=== PATIENT | female | born 1965 | race Caucasian/White ===

== ENCOUNTER → 2021-02-04 02:31 | Outpatient (CLI) | payer BC, SELFPAY ==
[2021-02-04 16:47] LABS: SARS-CoV-2 RNA PCR Negative
== END ==
PROVIDERS: PCP Nurse Practitioner Obstetrics & Gynecology; Visit Provider Internal Medicine Gastroenterology
DX: Z01.812 Encounter for preprocedural laboratory examination (principal); Z20.822 Contact with and (suspected) exposure to COVID-19
CPT/HCPCS: C9803; U0003; U0005

== ENCOUNTER 2021-02-07 01:01 | Day surgery (SDC) | payer BC, SELFPAY ==
[2021-01-24 13:25] VITALS: BMI 29.2
--- NOTE | 2021-02-06 18:30 | PM.HPGS ---
History of Present Illness History of Present Illness Consent: Risks, benefits, and alternatives have been discussed and questions answered. Patient agrees to proceed with procedure. Chief complaint: neoplasm screening Narrative: Kaci Ferguson is a 55 year old female referred for colon cancer screening Review of Systems Review of Systems: All systems reviewed & are unremarkable except as noted in HPI and below PMFSH Past Medical History Medical History Obesity Family History Family History Father Diabetes mellitus, Onset Age: 69 Other Family history of malignant neoplasm of breast Social History Social History Smoking status: Former smoker Alcohol intake: current Drinks per week: 6 Substance use: never Substance use type: does not use Living arrangements: with family Spiritual care concerns: No Meds Home Medications and Allergies Home Medications Medication Instructions Recorded Confirmed Type estradiol 1 mg PO DAILY 01/24/21 02/07/21 History progesterone micronized 100 mg PO BID 01/24/21 02/07/21 History Allergies Allergy/AdvReac Type Severity Reaction Status Date / Time No Known Allergies Allergy Verified 02/07/21 09:05 Exam Resp: Auscultation: clear to auscultation bilaterally Cardio: Rate: regular rate Rhythm: regular rhythm GI: GI Palp: Yes Soft to palpation and No Tenderness to palpation present (GI) Assessment and Plan Assessment and plan (1) Colon cancer screening: Code(s): Z12.11 - Encounter for screening for malignant neoplasm of colon Status: Acute Assessment and Plan: Colonoscopy with possible biopsy or polypectomy or cautery or injection of substances.
[2021-02-07 09:05] VITALS: BP 123/65; PULSE 82; RESP 16; TEMP 36.6; O2SAT 98; BMI 30.3
[2021-02-07] MEDS: LACTATED RINGERS 1,000 ML 150 ML IV CONT (09:22)
--- NOTE | 2021-02-07 09:57 | WPDANESEPPF ---
Anes - Initial Pre Proc Eval Procedure: Operation Date: 02/07/21 10:30 Proposed Procedures p Screening Colonoscopy - Johnnie Hernandez MD Date/Time: 02/07/21 09:57 Surgeon: Johnnie Hernandez MD Pre Op Diagnosis: neoplasm screening Patient Data Age: 55 Gender: F Height: 1.6 m Weight: 77.7 kg Last Vital Signs Temp 98 F 02/07/21 09:05 Pulse 82 02/07/21 09:05 Resp 16 02/07/21 09:05 BP 123/65 02/07/21 09:05 Pulse Ox 98 02/07/21 09:05 Allergies Allergy/AdvReac Type Severity Reaction Status Date / Time No Known Allergies Allergy Verified 02/07/21 09:05 Home Medications Medication Instructions Recorded Confirmed Type estradiol 1 mg PO DAILY 01/24/21 02/07/21 History progesterone micronized 100 mg PO BID 01/24/21 02/07/21 History Patient hx anesthesia problems: none Family hx anesthesia problems: none Results Review: All pre-operative results and documents have been reviewed as part of the pre-operative evaluation. [facility] Past Medical History Medical History (Updated 02/07/21 @ 09:53 by Josep Moyer MD) Obesity Family History Family History (Updated 05/13/16 @ 10:05 by DOCTOR UNKNOWN) Father Diabetes mellitus, Onset Age: 69 Other Family history of malignant neoplasm of breast Social History Social History Smoking status: Former smoker Alcohol intake: current Drinks per week: 6 Substance use: never Substance use type: does not use Living arrangements: with family Spiritual care concerns: No Anes - Eval Final PreProcedure Day of Procedure 02/07/21 09:57 Patient weight: obese Heart: regular rate and rhythm Lungs: clear to auscultation Airway: Mallampati scale Neurological: alert and oriented Last oral intake: >/= 8 hours ASA classification: II Emergent: no Anesthetic plan: proceed Anesthesia type and monitoring: general GIVS and standard monitoring Results Review: All pre-operative results and documents have been reviewed as part of the pre-operative evaluation. Informed Consent: The patient's anesthetic plan and its attendant risks and benefits were discussed with the patient/family/POA. Questions were solicited and answers provided to the satisfaction of the patient/family/POA.
[2021-02-07 10:32] VITALS: BP 89/54; PULSE 71; RESP 16; O2SAT 100
[2021-02-07 10:42] VITALS: BP 102/56; PULSE 68; RESP 18; O2SAT 100
[2021-02-07 10:52] VITALS: BP 127/65; PULSE 66; RESP 23; O2SAT 100
== END 2021-02-07 11:05 | disposition home or self-care (01) ==
PROVIDERS: PCP Nurse Practitioner Obstetrics & Gynecology; Visit Provider Internal Medicine Gastroenterology
PROC: 0DJD8ZZ Inspection of Lower Intestinal Tract, Via Natural or Artificial Opening Endoscopic (ICD-10-PCS; CPT 45378; principal; 2021-02-07 10:30)
DX: Z12.11 Encounter for screening for malignant neoplasm of colon (principal); D12.3 Benign neoplasm of transverse colon; K57.30 Diverticulosis of large intestine without perforation or abscess without bleeding; K64.8 Other hemorrhoids; E66.9 Obesity, unspecified; Z68.30 Body mass index [BMI] 30.0-30.9, adult; Z87.891 Personal history of nicotine dependence
CPT/HCPCS: 45385; 88305; C9803; J2704; J7120; U0003; U0005

== ENCOUNTER 2022-06-09 15:28 | Emergency (ER) | payer BC, SELFPAY ==
--- NOTE | ~2022-06-09 | XR_ITS ---
EXAMINATION: XR knee RT 3V DATE: 06/09/2022 16:23 INDICATION: Right knee pain radiating posteriorly into the hip and ankle TECHNIQUE: Anteroposterior, 2 oblique and crosstable lateral views of the right knee were obtained COMPARISON: None. FINDINGS: Alignment is normal. No fracture. Joint spaces appear normal. There are however subarticular cystic c hange at the patella suggesting overlying high-grade chondromalacia. No joint effusion/layering lipoh emarthrosis. Soft tissues are unremarkable. IMPRESSION: 1. Likely degenerative subarticular cystic change at the patella. No right knee joint effusion or acu te osseous abnormality. Reviewed, dictated and finalized at location A. A [employer] MEMBER IMPRESSION: 1. Likely degenerative subarticular cystic change at the patella. No right knee joint effusion or acute osseous abnormality.
[2022-06-09 15:47] VITALS: BP 135/78; PULSE 77; RESP 17; TEMP 36.6; O2SAT 99
--- NOTE | 2022-06-09 16:52 | ED.LOWEXIN ---
HPI - Extremity Injury (Lower) General Chief Complaint: Extremity Injury, Lower Stated Complaint: right knee pain Time Seen by Provider: 06/09/22 16:23 Source: patient Mode of arrival: wheelchair Limitations: no limitations History of Present Illness HPI Narrative: This is a 56-year-old female that presents to the emergency department for right knee pain ongoing since this morning. Reports she went to go up the steps and felt a pop in her right knee. Said she has had pain in her knee and that is made it unable for her to bear weight on the leg. She additionally reports right-sided low back pain radiating down her leg. There was no fall or certain injury. Denies decreased range of motion or numbness. Related Data Home Medications Medication Instructions Recorded Confirmed estradiol 1 mg tablet 1 mg PO DAILY 01/24/21 02/07/21 progesterone micronized 100 mg 100 mg PO BID 01/24/21 02/07/21 capsule Allergies Allergy/AdvReac Type Severity Reaction Status Date / Time No Known Allergies Allergy Verified 06/09/22 16:15 Review of Systems Review of Systems: CONSTITUTIONAL: Denies fever MUSCULOSKELETAL: Reports back pain, joint pain, and myalgia. NEUROLOGIC: Denies numbness, or weakness. All systems reviewed & are unremarkable except as noted in HPI and below PMFSH Past Medical History Medical History Obesity Family History Family History Father Diabetes mellitus, Onset Age: 69 Other Family history of malignant neoplasm of breast Social History Social History Smoking status: Former smoker Alcohol intake: current Drinks per week: 6 Substance use: never Substance use type: does not use Living arrangements: with family Spiritual care concerns: No Exam Narrative: GENERAL: Well-appearing, well-nourished, and in no acute distress. HEAD: Normocephalic, atraumatic. EYES: EOMI. CHEST: No respiratory distress. HEART: Regular rate BACK: No midline spinal tenderness EXTREMITIES: Normal range of motion. No edema or obvious deformity. Normal DP pulse. Normal sensation SKIN: Warm, dry, no rash. NEURO: No focal deficits. Alert and oriented x3. PSYCH: Normal mood and affect Course Vital Signs Vital signs: Vital Signs Temperature 98 F 06/09/22 15:47 Pulse Rate 77 06/09/22 15:47 Respiratory Rate 17 06/09/22 15:47 Blood Pressure 135/78 06/09/22 15:47 Pulse Oximetry 99 06/09/22 15:47 Temperature 98 F 06/09/22 15:47 Pulse Rate 77 06/09/22 15:47 Respiratory Rate 17 06/09/22 15:47 Blood Pressure 135/78 06/09/22 15:47 Pulse Oximetry 99 06/09/22 15:47 MDM - Extremity Injury (Lower) MDM Narrative Medical decision making narrative: Patient presents to the emergency department for right knee pain after walking up the steps today. Reports she felt a pop in the knee and has had pain since. Reports she has not been able to bear weight on the leg due to pain. Patient is neurovascularly intact. Right knee x-rays without acute osseous abnormalities or joint effusion. Does show degenerative changes at the patella. She was additionally reporting some low back pain on the right side that was radiating down her right leg consistent with sciatica. Offered for x-rays of her back as well. She does not wish to have these done at this time. She was updated on workup. Instructed on continued care of knee sprain. Will be placed in Javon wrap and reports she will be able to get a walker for home. She does not want to attempt crutches. She is to follow-up with orthopedics. She was given warnings to return to the ER Differential Diagnosis Differential diagnosis: Likely acute internal derangement of knee and other (muscle strain, sciatica) Imaging Data Radiologist's impression: ITS Impressions Knee X-Ray
[2022-06-09] MEDS: HYDROcodone/acetaminophen (*CRX) 5-325 MG TABLET 1 TAB PO (17:19)
[2022-06-09 17:28] VITALS: BP 124/55; PULSE 69; RESP 16; O2SAT 98
== END 2022-06-09 17:30 | disposition home or self-care (01) ==
PROVIDERS: Emergency Provider Physician Assistant
DX: S83.91XA Sprain of unspecified site of right knee, initial encounter (principal); M54.41 Lumbago with sciatica, right side; E66.9 Obesity, unspecified; Z68.33 Body mass index [BMI] 33.0-33.9, adult; Z87.891 Personal history of nicotine dependence; X50.9XXA Other and unspecified overexertion or strenuous movements or postures, initial encounter
CPT/HCPCS: 73562; 99283; A9270

== ENCOUNTER 2024-10-05 08:02 | Outpatient (CLI) | payer BC, SELFPAY ==
--- OUTSIDE RECORDS SUMMARY | 2024-10-05 08:07 | XMS_ITS | Data Portability ---
Author Organization [facility], Main Office Address [address] [place] [address] Assessment No assessment recorded. Plan of Treatment Reminders Order Date Submit Date Provider Last Modified By Organization Details Last Modified Time Details Appointments None record ed. Lab None record ed. Referral None record ed. Procedures None record ed. Surgeries None record ed. Imaging None record ed. Medication Orders None record ed. Patient TargetsNo targets recorded. Patient InstructionsNo instructions recorded. Reason for Referral None Reported. Results Created Date Observation Date Name Description Value Unit Range Abnormal Flag Note LastModifiedBy Organization Detail LastModifiedTime 09/21/19 22 09/24/2021 DELFINA/A NTINU CLEAR ANTIB ODIES ,IFA antinuclear antibodies, ifa negati ve Negat ganga <1:80 Borde rline 1:80 Posit ganga >1:80 ICAP nomen will re: AC-0 For more infor chelle cueva about Hep-2 cell patte rns use ANApa ttern s.org , the offic ial websi te for the Inter natio nal Conse nsus on Antin uclea r Antib carmen (DELFINA) Patte rns ([facility] ). Perfo [place]med at: [place] [address] Lab Direc tor: Yosi garcia PhD, Phone : [phone] Not Available [facility] (Lab) [address] [place], [address], 09/24/2021 15:11:20 09/21/19 22 09/20/2021 FOLAT E, SERUM /PLAS MA folate 4.32 NG/mL 2.76-2 0.0 Not Available [facility] (Lab) [address] [place], [address], 09/20/2021 20:27:53 09/21/19 22 09/20/2021 VITAM IN B12 (GERTRUDIS LIN ) vb12 565 pg/mL 239-93 1 Not Available [facility] (Lab) [address] [place], [address], 09/20/2021 20:27:52 09/21/19 22 09/20/2021 TSH thyroid-stim ulating hormone 0.950 uIU/m L 0.465- 4.680 Not Available [facility] (Lab) [address] [place], [address], 09/20/2021 19:51:28 09/21/19 22 09/20/2021 HEMOG LOBIN A1C HA1C 5.2 % 4.0-6. 0 Diabe dustin Scree jennifer Crite manoj: <5.7% Consi stent with absen ce of diabe dustin 5.7-6 .4% Consi stent with incre ased risk for diabe dustin (pred iabet es) >OR=6 .5% Consi stent with diabe dustin REFER ENCE: Diabe dustin Care 2016, 39(Crystal ppl.1 ):s13 -s22 Not Available [facility] (Lab) [address] [place], [address], 09/20/2021 19:48:52 09/21/19 22 09/20/2021 LIPID PANEL cholesterol 237 mg/dL 140-19 9 high NIH LISANDRA NSUS RECOM MENDA TION FOR TODD STERO L: ADULT CHILD LOW RISK: <200 <170 BORDE RLINE : <200- 239 ----- HIGH RISK: >240 >200 Not Available [facility] (Lab) [address] [place], [address], 09/20/2021 19:37:58 09/21/19 22 09/20/2021 LIPID PANEL triglyceride s 125 mg/dL 0-150 NIH LISANDRA NSUS REPOR T RECOM MENDA TION FOR TRIGL YCERI JJ: ADULT CHILD LOW RISK: <150 ----- BODER LINE: 150-1 99 ----- HIGH RISK: >200 ----- Not Available [facility] (Lab) [address] [place], [address], 09/20/2021 19:37:58 09/21/19 22 09/20/2021 LIPID PANEL HDL cholesterol 50 mg/dL 40- Not Available [facility] (Lab) [address] [place], [address], 09/20/2021 19:37:58 09/21/19 22 09/20/2021 LIPID PANEL LDL cholesterol, calculated 162 mg/dL 0-130 high NIH LISANDRA NSUS REPOR T RECOM MENDA TIONS FOR LDL: ADULT CHILD LOW RISK <130 <110 (OPTI MAL LDL) <100 ----- BORPALLAVI RLINE : 130-1 59 ----- HIGH RISK: >160 >130 A TRIGL YCERI DE RESUL T >400 INVAL IDATE S THE CALCU LATIO N FOR LDL FRACT IONAT ION - THE LDL RESUL T WILL NOT BE REPOR JIM. Not Available [facility] (Lab) [address] [place], [address], 09/20/2021 19:37:58 09/21/19 22 09/20/2021 COMPR EHENS GANGA METAB OLIC PANEL sodium 137 mmol/ L 137-14 5 Not Available [facility] (Lab) [address] [place], [address], 09/20/2021 19:37:55 09/21/19 22 09/20/2021 COMPR EHENS GANGA METAB OLIC PANEL potassium 4.5 mmol/ L 3.5-5. 1 Not Available [facility] (Lab) [address] [place], [address], 09/20/2021 19:37:55 09/21/19 22 09/20/2021 COMPR EHENS GANGA METAB OLIC PANEL chloride 103 mmol/ L 98-107 Not Available [facility] (Lab) [address] [place], [address], 09/20/2021 19:37:55 09/21/19 22 09/20/2021 COMPR EHENS GANGA METAB OLIC PANEL carbon dioxide 26 mmol/ L 22-30 Not Available [facility] (Lab) [address] [place], [address], 09/20/2021 19:37:55 09/21/19 22 09/20/2021 COMPR EHENS GANGA METAB OLIC PANEL anion gap 12.5 mmol/ L 14-22 low Not Available [facility] (Lab) [address] [place], [address], 09/20/2021 19:37:55 09/21/19 22 09/20/2021 COMPR EHENS GANGA METAB OLIC PANEL glucose 93 mg/dL 70-99 Not Available [facility] (Lab) [address] [place], [address], 09/20/2021 19:37:55 09/21/19 22 09/20/2021 COMPR EHENS GANGA METAB OLIC PANEL BUN 20 mg/dL 8-19 high Not Available [facility] (Lab) [address] [place], [address], 09/20/2021 19:37:55 09/21/19 22 09/20/2021 COMPR EHENS GANGA METAB OLIC PANEL creatinine 0.92 mg/dL 0.66-1 .25 Not Available [facility] (Lab) [address] [place], [address], 09/20/2021 19:37:55 09/21/19 22 09/20/2021 COMPR EHENS GANGA METAB OLIC PANEL GFR >60 Refer ence Range : [place] ge GFR Healt hy Adult : >60 mL/mi n/1.7 3 m2 Chron ic Kidne y Disea se: 15-60 mL/mi n/1.7 3 m2 Kidne y Failu re: <15/m L/min /1.73 m2 www.n iddk. nih.g ov The MDRD study equat ion has not been valid ated in child mary <18 years of age; pregn ant women ; the elder ly >85 years of age; or in some racia l or ethni c subgr oups, such as Hispa nics. Outsi de the valid ated donny eters , estim ated GFR is less accur ate, requi ring clini luis manuel judgm ent on a case- by-ca se basis . Clini luis manuel inter preta tion for other races and ages must be made by the clini harsh. The MDRD study equat ion has not been valid ated for the evalu ation of serum creat inine relat ed to nutri rae l statu s or medic ation usage . For perso ns <18 years of age, a pedia tric GFR calcu lator is avail able on the [facility] websi te: https :[email or web address] martines.lakisha freeman/pr ofess ional s/kdo qi/gf r_cal culat or Not Available [facility] (Lab) [address] [place], [address], 09/20/2021 19:37:55 09/21/19 22 09/20/2021 COMPR EHENS GANGA METAB OLIC PANEL alkaline phosphatase 65 U/L 38-126 Not Available [facility] (Lab) [address] [place], [address], 09/20/2021 19:37:55 09/21/19 22 09/20/2021 COMPR EHENS GANGA METAB OLIC PANEL alanine aminotransfe rase 19 U/L 0-35 Not Available [facility] (Lab) [address] [place], [address], 09/20/2021 19:37:55 09/21/19 22 09/20/2021 COMPR EHENS GANGA METAB OLIC PANEL aspartate aminotransfe rase 22 U/L 15-37 Not Available [facility] (Lab) [address] [place], [address], 09/20/2021 19:37:55 09/21/19 22 09/20/2021 COMPR EHENS GANGA METAB OLIC PANEL bilirubin, total 1.00 mg/dL 0.20-1 .30 Not Available [facility] (Lab) [address] [place], [address], 09/20/2021 19:37:55 09/21/19 22 09/20/2021 COMPR EHENS GANGA METAB OLIC PANEL calcium 9.9 mg/dL 8.4-10 .2 Not Available [facility] (Lab) [address] [place], [address], 09/20/2021 19:37:55 09/21/19 22 09/20/2021 COMPR EHENS GANGA METAB OLIC PANEL total protein 8.0 g/dL 6.3-8. 2 Not Available [facility] (Lab) [address] [place], [address], 09/20/2021 19:37:55 09/21/19 22 09/20/2021 COMPR EHENS GANGA METAB OLIC PANEL albumin 4.4 g/dL 3.4-5. 0 Not Available [facility] (Lab) [address] [place], [address], 09/20/2021 19:37:55 09/21/19 22 09/20/2021 COMPR EHENS GANGA METAB OLIC PANEL globulin 3.6 g/dL 2.6-4. 2 Not Available [facility] (Lab) [address] [place], [address], 09/20/2021 19:37:55 09/21/19 22 09/20/2021 COMPR EHENS GANGA METAB OLIC PANEL A/G ratio 1.2 ratio 1.0-2. 0 Not Available [facility] (Lab) [address] [place], [address], 09/20/2021 19:37:55 09/21/19 22 09/20/2021 MAGNE SIUM magnesium 2.1 mg/dL 1.6-2. 3 Not Available [facility] (Lab) [address] [place], [address], 09/20/2021 19:37:42 09/21/19 22 09/20/2021 VITAM IN D 25-HY DROXY vd25oh 44.9 NG/mL 30-100 Vitam in D Statu s: Defic ient: <20 ng/mL Insuf ficie nt: 20-29 ng/mL Suffi cient : 30-10 0 ng/mL Not Available [facility] (Lab) [address] [place], [address], 09/20/2021 19:37:04 09/21/19 22 09/20/2021 C REACT GANGA PROTE IN,UL TRA SENS C-reactive protein 0.28 mg/dL 0.0-0. 5 Not Available [facility] (Lab) [address] [place], [address], 09/20/2021 19:36:16 09/21/19 22 09/20/2021 SEDIM ENTAT ION RATE erythrocyte sedimentatio n rate 14 mm/HR 0-20 Not Available [facility] (Lab) [address] [place], [address], 09/20/2021 19:20:54 09/21/19 22 09/20/2021 CPK TOTAL creatine kinase 47 U/L 30-135 Not Available [facility] (Lab) [address] [place], [address], 09/20/2021 19:19:23 09/21/19 22 09/20/2021 CBC/C OMPLE TE BLD COUNT W/DIF F white blood cells 7.8 x10'3 /uL 4.2-10 .8 Not Available [facility] (Lab) [address] [place], [address], 09/20/2021 19:00:35 09/21/19 22 09/20/2021 CBC/C OMPLE TE BLD COUNT W/DIF F red blood cells 4.78 x10'6 /uL 3.80-5 .20 Not Available [facility] (Lab) [address] [place], [address], 09/20/2021 19:00:35 09/21/19 22 09/20/2021 CBC/C OMPLE TE BLD COUNT W/DIF F hemoglobin 15.3 g/dL 12.0-1 5.6 Not Available [facility] (Lab) [address] [place], [address], 09/20/2021 19:00:35 09/21/19 22 09/20/2021 CBC/C OMPLE TE BLD COUNT W/DIF F hematocrit 44.5 % 35.7-4 5.7 Not Available [facility] (Lab) [address] [place], [address], 09/20/2021 19:00:35 09/21/19 22 09/20/2021 CBC/C OMPLE TE BLD COUNT W/DIF F mean red cell volume 93.1 fL 82.0-9 9.0 Not Available [facility] (Lab) [address] [place], [address], 09/20/2021 19:00:35 09/21/19 22 09/20/2021 CBC/C OMPLE TE BLD COUNT W/DIF F mean red cell hemoglobin 32.0 pg 27.0-3 3.0 Not Available [facility] (Lab) [address] [place], [address], 09/20/2021 19:00:35 09/21/19 22 09/20/2021 CBC/C OMPLE TE BLD COUNT W/DIF F mean RBC HGB concentratio n 34.4 g/dL 31.0-3 6.0 Not Available [facility] (Lab) [address] [place], [address], 09/20/2021 19:00:35 09/21/19 22 09/20/2021 CBC/C OMPLE TE BLD COUNT W/DIF F red cell distribution width 13.2 % 11.8-1 5.5 Not Available [facility] (Lab) [address] [place], [address], 09/20/2021 19:00:35 09/21/19 22 09/20/2021 CBC/C OMPLE TE BLD COUNT W/DIF F platelets 292 x10'3 /uL 150-40 0 Not Available [facility] (Lab) [address] [place], [address], 09/20/2021 19:00:35 09/21/19 22 09/20/2021 CBC/C OMPLE TE BLD COUNT W/DIF F mean platelet volume 10.0 fL 9.0-12 .4 Not Available [facility] (Lab) [address] [place], [address], 09/20/2021 19:00:35 09/21/19 22 09/20/2021 CBC/C OMPLE TE BLD COUNT W/DIF F neutrophils 56.1 % 39.0-7 2.0 Not Available [facility] (Lab) [address] [place], [address], 09/20/2021 19:00:35 09/21/19 22 09/20/2021 CBC/C OMPLE TE BLD COUNT W/DIF F lymphocytes 30.2 % 16.0-4 7.0 Not Available [facility] (Lab) [address] [place], [address], 09/20/2021 19:00:35 09/21/19 22 09/20/2021 CBC/C OMPLE TE BLD COUNT W/DIF F monocytes 8.4 % 5.0-12 .0 Not Available [facility] (Lab) [address] [place], [address], 09/20/2021 19:00:35 09/21/19 22 09/20/2021 CBC/C OMPLE TE BLD COUNT W/DIF F eosinophils 4.4 % 1.0-7. 0 Not Available [facility] (Lab) [address] [place], [address], 09/20/2021 19:00:35 09/21/19 22 09/20/2021 CBC/C OMPLE TE BLD COUNT W/DIF F basophils 0.8 % 0.0-2. 0 Not Available [facility] (Lab) [address] [place], [address], 09/20/2021 19:00:35 09/21/19 22 09/20/2021 CBC/C OMPLE TE BLD COUNT W/DIF F immature granulocytes 0.1 % 0.00-0 .50 Not Available [facility] (Lab) [address] [place], [address], 09/20/2021 19:00:35 09/21/19 22 09/20/2021 CBC/C OMPLE TE BLD COUNT W/DIF F neutrophils, absolute count 4.36 x10'3 /uL 1.5-8. 0 Not Available [facility] (Lab) [address] [place], [address], 09/20/2021 19:00:35 09/21/19 22 09/20/2021 CBC/C OMPLE TE BLD COUNT W/DIF F lymphocytes, absolute count 2.35 x10'3 /uL 1.07-3 .43 Not Available [facility] (Lab) [address] [place], [address], 09/20/2021 19:00:35 09/21/19 22 09/20/2021 CBC/C OMPLE TE BLD COUNT W/DIF F monocytes, absolute count 0.65 x10'3 /uL 0.29-0 .99 Not Available [facility] (Lab) [address] [place], [address], 09/20/2021 19:00:35 09/21/19 22 09/20/2021 CBC/C OMPLE TE BLD COUNT W/DIF F eosinophils, absolute count 0.34 x10'3 /uL 0.02-0 .53 Not Available [facility] (Lab) [address] [place], [address], 09/20/2021 19:00:35 09/21/19 22 09/20/2021 CBC/C OMPLE TE BLD COUNT W/DIF F basophils, absolute count 0.06 x10'3 /uL 0.01-0 .08 Not Available [facility] (Lab) [address] [place], [address], 09/20/2021 19:00:35 09/21/19 22 09/20/2021 CBC/C OMPLE TE BLD COUNT W/DIF F immature granulocytes ,absolute 0.01 x10'3 /uL 0.00-0 .05 Not Available [facility] (Lab) [address] [place], [address], 09/20/2021 19:00:35 09/21/19 22 09/20/2021 CBC/C OMPLE TE BLD COUNT W/DIF F nucleated red blood cells 0.0 % -0 Not Available [facility] (Lab) [address] [place], [address], 09/20/2021 19:00:35 09/21/19 22 09/20/2021 CBC/C OMPLE TE BLD COUNT W/DIF F NRBC# 0.00 x10'3 /uL Not Available [facility] (Lab) [address] [place], [address], 09/20/2021 19:00:35 11/20/19 22 11/19/2021 XR, shoul lis [facility] [address], [place] [address] [phone] Jaqui chapa Name: BEV PARHAM Access ion #: [id number] Sex: F : 1965 4 Locati on: RAD Attend ing Physic grisel: СВЕТЛАНА LATIF Orderi ng Physic grisel: СВЕТЛАНА LATIF Exam Date: 3:25 PM Exam Name: XR SHOULD ER LT Admitt ing Diagno sis(es ): RADIOL OGY REPORT - FINAL EXAM: XR SHOULD ER LT HISTOR Y: pain in left should er54-y ear-ol d female with left should er pain, no known injury . COMPAR SRIRAM: None availa ble. TECHNI QUE: Four views of the left should er were perfor med. FINDIN GS: No acute fractu re or disloc ation are identi fied about the left should er. There is mild acromi oclavi cular hypert rophy withou t signif icant loss of subacr omial space. There is mild to modera te thorac ic degene rative disc diseas e, not fully imaged here. Page 1 of 2 [facility] Jaqui chapa Name: BEV PARHAM Access ion #: [id number] Sex: F : 1965 4 Exam Date: 3:25 PM Exam Name: XR SHOULD ER LT Admitt ing Diagno sis(es ): IMPRES ALENA: 1. No fractu re of the left should er. 2. Mild acromi oclavi cular hypert rophy. Create d and electr onical ly signed by: Steven mix MD Signed Date: 3:53 PM (CT) Dictat ed by: Steven mix MD DD: 3:53 PM (CT) DT: 3:53 PM (CT) Page 2 of 2 [id number] [facility] (Imaging) [address] [facility], [place], [address], 07/02/2022 18:53:37 Result Notes None recorded. Problems Name Problem SNOMED Code Status Onset Date Resolution Date Notes Provider Name and Address Organization Details Recorded Time Headache 27725558 Active 2020 Not Available [facility] 3 18:52:42 Sinusitis 06700284 Active 2016 Not Available [facility] 3 18:52:42 Dizziness 302311172 Active 2016 Not Available [facility] 3 18:52:42 Essential hypertension 68002352 Active 2020 Not Available [facility] 3 18:52:42 Pain of multiple joints 64885469 Active 2022 Susie Latif NP [address] [address], [place], [address] , [employer] 3 11:10:07 Obese 529723512 Active 2022 Susie Latif NP [address] [address], [place], [address] , [employer] 3 11:13:59 Problem Notes None recorded. Procedures Surgical History Date Name Laterality Status Provider Name and Address Organization Details Recorded Time 05/04/19 22 Date of Last Colonoscopy completed Susie Decker RN [facility] [employer] 07/18/2022 10:53:55 05/04/19 22 Date of Last Pap Smear completed Susie Decker RN [facility] 07/18/2022 10:54:03 05/04/19 19 Most Recent Mammogram completed Susie Decker RN [facility] [employer] 07/18/2022 10:53:43 delivery completed Not Available [facility] 07/02/2022 18:52:04 Tubal Ligation completed Not Available [facility] 07/02/2022 18:52:04 Imaging Results None recorded. Procedure Notes None recorded. Medical Equipment None Reported. Allergies No known drug allergies Medications Name Sig Start Date Stop Date Status Note LastModified by Organization Details LastModified Time cyclobenzap rine 10 mg tablet TAKE 1 TABLET BY MOUTH DAILY 3 TIMES DAILY NEEDED FOR MUSCLE SPASM 07/18 completed Not Available Not Available Not Available prednisone 10 mg tablet take po, take 3x 3 days, 2 x 3 days, 1 x 3 days active Not Available Not Available No t Available doxycycline hyclate 100 mg capsule 09/08 completed Not Available Not Available Not Available prednisone 20 mg tablet Take 2 tablets every day by oral route for 5 days. 07/18 completed Not Available Not Available Not Available metronidazo le 500 mg tablet 09/08 completed Not Available Not Available Not Available ciprofloxac in 500 mg tablet TAKE 1 TABLET BY MOUTH EVERY 12 HOURS 07/10 completed Not Available Not Available Not Available estradiol 1 mg tablet TAKE 1 TABLET BY MOUTH EVERY DAY 09/20 completed Not Available Not Available Not Available progesteron e micronized 200 mg capsule TAKE 1 CAPSULE BY MOUTH EVERY DAY 07/18 completed Not Available Not Available Not Available montelukast 10 mg tablet Take 1 tablet every day by oral route. active Not Available Not Available No t Available estradiol 0.5 mg tablet TAKE 1 TABLET BY MOUTH EVERY DAY 07/18 completed Not Available Not Available Not Available methylpredn isolone 4 mg tablets in a dose pack TAKE 6 TABLETS ON DAY 1 DIRECTED ON PACKAGE AND DECREASE BY 1 TAB EACH DAY FOR A TOTAL OF 6 DAYS 07/18 completed Not Available Not Available Not Available fluoxetine 20 mg capsule TAKE 1 CAPSULE BY MOUTH EVERY DAY active Not Available Not Available No t Available fluticasone propionate 50 mcg/actuati on nasal spray,suspe nsion take 2 sprays each nostirl at supper active Not Available Not Available No t Available sertraline 50 mg tablet Take 1 tablet every day by oral route. active Not Available Not Available No t Available progesteron e micronized 100 mg capsule TAKE 1 CAPSULE BY MOUTH EVERY DAY 09/20 completed Not Available Not Available Not Available Premarin 0.625 mg/gram vaginal cream 09/20 completed Not Available Not Available Not Available escitalopra m 5 mg tablet TAKE 1 TABLET BY MOUTH EVERY DAY active Not Available Not Available No t Available Vitals Date Recorded Body mass index (BMI) Body height Oxygen saturation Oxygen saturation in Arterial blood by Pulse oximetry Heart rate Body temperature Body weight Systolic blood pressure Diastolic blood pressure Provider Name and Address Organization Details Last Updated DateTime 2 34.6 kg/m2 157.48 cm 97 % 97 % 90 /min 98.6 [degF] 90872.9 6 g 138 mm[Hg] 90 mm[Hg] Not Available [facility] 3 18:52:33 Date Recorded Body weight Provider Name an d Address Organization Details Last Updated DateTime 07/18/2022 06238.66 g Susie Latif NP [address] [facility] [address], [place], [address], [place] [employer] [facility] [employer] 07/18/2022 11:03:08 Date Recorded Body height Body mass index (BMI) Body weight Body temperature Respiratory rate Heart rate Oxygen saturation Oxygen saturation in Arterial blood by Pulse oximetry Systolic blood pressure Diastolic blood pressure Provider Name and Address Organization Details Last Updated DateTime 3 157.48 cm 36.9 kg/m2 59052.6 6 g 97.7 [degF] 16 /min 89 /min 98 % 98 % 148 mm[Hg] 90 mm[Hg] Susie Decker RN [employer] [facility] [employer] 3 10:47:56 Date Recorded Body mass index (BMI) Body height Oxygen saturation Oxygen saturation in Arterial blood by Pulse oximetry Heart rate Body temperature Body weight Systolic blood pressure Diastolic blood pressure Provider Name and Address Organization Details Last Updated DateTime 2 34.8 kg/m2 157.48 cm 99 % 99 % 98 /min 97.9 [degF] 36757.5 5 g 132 mm[Hg] 82 mm[Hg] Not Available [facility] 3 18:52:34 Date Recorded Body mass index (BMI) Body height Oxygen saturation Oxygen saturation in Arterial blood by Pulse oximetry Heart rate Body temperature Body weight Systolic blood pressure Diastolic blood pressure Provider Name and Address Organization Details Last Updated DateTime 1 31.4 kg/m2 157.48 cm 98 % 98 % 67 /min 97.9 [degF] 43778.4 5 g 120 mm[Hg] 80 mm[Hg] Not Available [facility] 3 18:52:33 Social History Question Answer Notes LastModified by Organizat ion Details LastModified Time Tobacco Smoking Status Never Smoker Not Available [facility] 07/02/2022 18:52:00 Do You Have An Advance Directive? No [id number] Information not available 07/02/2022 Is Blood Transfusion Acceptable In An Emergency? Yes Information not available 07/18/2022 What Is Your Level Of Caffeine Consumption? Heavy [id number] Information not available 07/02/2022 What Is Your Code Status? Full Code Information not available 07/18/2022 In The 14 Days Before Symptom Onset, Have You Had Close Contact With A Laboratory-confir med COVID-19 While That Case Was Ill? No [id number] Information not available 07/02/2022 In The 14 Days Before Symptom Onset, Have You Had Close Contact With A Person Who Is Under Investigation For COVID-19 While That Person Was Ill? No [id number] Information not available 07/02/2022 What Type Of Diet Are You Following? REGULAR [id number] Information not available 07/02/2022 How Many Days Of Moderate To Strenuous Exercise, Like A Brisk Walk, Did You Do In The Last 7 Days? 4 [id number] Information not available 07/02/2022 Have There Been Any Changes To Your Family Or Social Situation? No [id number] Information not available 07/02/2022 Do You Use Insect Repellent Routinely? Yes [id number] Information not available 07/02/2022 Where Do You Live? [facility] Information not available 07/18/2022 Do You Have A Medical Power Of Librarian Special Collections? No [id number] Information not available 07/02/2022 How Many Children Do You Have? 1 Information not available 07/18/2022 Have You Ever Been Counseled For Unhealthy Alcohol Use? No [id number] Information not available 07/02/2022 Do You Have Any Pets? Yes 3 Dogs Information not available 07/18/2022 Do You Use Protection During Sex? No Information not available 07/18/2022 What Is Your Relationship Status? Single [id number] Information not available 07/02/2022 Do You Use Your Seat Belt Or Car Seat Routinely? Yes [id number] Information not available 07/02/2022 Are You Sexually Active? Yes Information not available 07/18/2022 Do You Have Smoke And Carbon Monoxide Detectors In Your Home? Yes [id number] Information not available 07/02/2022 Are You Passively Exposed To Smoke? No Information no t available 07/18/2022 Are There Any Smokers In Your House? No Information not available 07/18/2022 Do You Participate In Social Media? Yes [id number] [id number] Information not available 07/02/2022 Do You Use Sunscreen Routinely? Yes MIGRATION.75628 [id number] Information not available 07/02/2022 Has Tobacco Cessation Counseling Been Provided? No MIGRATION.87506 42269 Information not available 07/02/2022 Have You Recently Traveled Abroad? No MIGRATION.91073 [id number] Information not available 07/02/2022 Do You Have Any Dietary Restrictions? No MIGRATION.72265 96851 Information not available 07/02/2022 Sex: Female Functional Status Question Answer Note LastModified by [employer] Details LastModified Time Do you use any illicit or recreational drugs? No [id number] Information not available 07/02/2022 Do you or have you ever used any other forms of tobacco or nicotine? Yes MIGRATION.158087 2155 Information not available 07/02/2022 What is your level of alcohol consumption? Moderate Weekend MIGRATION.649191 8197 Information not available 07/02/2022 Do you or have you ever used smokeless tobacco? Never used smokeless tobacco MIGRATION.306692 5136 Information not available 07/02/2022 Are you currently employed? Yes Information not available 07/18/2022 What is your occupation? [employer] MIGRATION.285823 9255 Information not available 07/02/2022 Do you or have you ever used e-cigarettes or vape? Never used electronic cigarettes Information not available 07/18/2022 What is your exercise level? Heavy MIGRATION.[id number] Information not available 07/02/2022 Mental Status Question Answer Note LastModified by [employer] Details LastModified Time Do you feel stressed (tense, restless, nervous, or anxious, or unable to sleep at night)? [id number] [id number] Information not available 07/02/2022 Family History Relationship Description Onset Age of this Age Resolved Age Notes LastModified by Organization Details LastModified Time Unspecified Relation Hypertensive disorder MIGRATION.928 [id number] Not available 07/02/2022 18:52:05 Unspecified Relation Heart disease MIGRATION.854 [id number] Not available 07/02/2022 18:52:05 Unspecified Relation Family history of stroke MIGRATION.335 [id number] Not available 07/02/2022 18:52:05 Unspecified Relation Malignant tumor of breast MIGRATION.675 [id number] Not available 07/02/2022 18:52:05 Unspecified Relation Low blood pressure MIGRATION.642 [id number] Not available 07/02/2022 18:52:05 Unspecified Relation Malignant tumor of colon MIGRATION.736 [id number] Not available 07/02/2022 18:52:05 Father Diabetes mellitus MIGRATION.285 [id number] Not available 07/02/2022 18:52:05 Medical History No medical history recorded. Gynecological History Statement/Question Response Abnormal Pap N Flow Moderate Date of LMP 04/03/2022 STIs/STDs N Dislike of Light during Menstrual Headac he N Do your menstrual headaches get severe N Duration of Flow (days) 4 Most Recent Mammogram 05/04/2018 Current Control Method None Age at Menarche 15 Breast Problems no How many live births 1 Date of Last Colonoscopy 05/04/2021 Most Recent Bone Density Weight gain Y Do you get headaches during your period N Menses Monthly N Date of Last Pap Smear 05/04/2021 Discharge no Obstetrics History GPAL:G 1 P 0 0 0 0 Past Encounters Encounter ID Performer Location Encounter Start Date Encounter Closed Date Diagnosis/Indication Diagnosis SNOMED-CT Code Diagnosis ICD10 Code Diagnosis Note [id number] Mando Michele MD [facility] [address] [place] [address] [id number] 12/06/2020 00:00:00 12/06/2020 13:56:11 [id number] Mando Michele MD [facility] [address] [place] [address] [id number] 07/10/2021 00:00:00 07/10/2021 16:54:01 [id number] [facility] [address] [place] [address] [id number] 09/20/2021 00:00:00 09/20/2021 10:34:34 [id number] Susie Latif NP [facility] [address] [place] [address] [id number] 07/18/2022 10:34:09 07/18/2022 11:18:46 Pain of multiple joints [id number] M25.50 Glucosamin e and condroitin .Celebrex offered but declined. Pt wanting to try low histamine diet and look at food labels on grapefruit juice. Obese [id number] E66.9 weight gain- not as active due to meniscus tear. Health Concerns Section Related Observation LastModified by Organization Detai ls LastModified Time None Recorded Concern Status LastModified by Organization Details LastModified Time None Recorded Advance Directives Directive N: Payers Encounter Date Sequence Insurance Name Policy Number Policy Cain Covered Member ID Cain Member ID Guarantor Name 07/18/2022 1 [facility] [id number] Bev Ferguson [id number] Bev Cheatham Notes Date Note Type Note Provider Name and Address Organization Details Recorded Time 07/18/2022 text/html Pt. here to discuss muscle pain and menopause symptoms. Muscle Pain - 2.5 months cramping in lowe rback of legs, Getting 8-10K stelps daily. In PT for torn meniscus. Feeling sore all over. No bruising. For 2 mo using womens multivitamin.Onl y drinking water, no soda. Has been trying to avoid salt. No injury.Labs september 0509/2021 good. Has been trying to do wall yoga since meniscus tore.Hips are sore. Diet- kios peach yogurt, steak salad, chicken and dumplings. Okios peach yogurt today. Has gained 15 lbs in a few months. Menopause - went off all meds Susie Latif NP [address] [facility], [place] [address], [place], [address], [facility] 07/18/2022 11:15:49 OBGyn Episode No OBEpisode recorded.
--- OUTSIDE RECORDS SUMMARY | 2024-10-05 08:07 | XMS_ITS | Data Portability ---
Author Organization [facility] Address [address] [place] [address] [place] [address] Assessment No assessment recorded. Plan of Treatment Reminders Order Date Submit Date Provider Last Modified By Organization Details Last Modified Time Details Appointments Robotic TLH 2024 09:00A Lin MARSHALL MD Not available Not available Not available SURG POST OP 2024 01:45P Lin MARSHALL MD Not available Not available Not available Lab surgical pathology study - EMB 2024 025 [facility] (Lab), [address], [place], [address], 09/01/2024 15:07:25 test, urine 2024 025 [facility], [address], [address], [place], [address], 08/31/2024 11:54:07 urinalysi s, dipstick [email or web address] [place] [address] [facility] [address], [place], [address], 07/29/2024 10:08:28 culture, urine 2024 025 [facility] (Lab), [address], [place], [address], 07/31/2024 23:02:30 unlisted lab - women's health swab plus, TRISTEN 2024 025 [facility] (Lab), [address], [place], [address], 07/31/2024 23:02:29 test, urine 2024 025 [email or web address] [address], [address], [place], [address], 07/29/2024 10:20:13 Referral gastroent erologist referral 2024 025 [email or web address] [facility], [address], [id number], [place], [address], 08/28/2024 11:12:51 Procedures None recorded. Surgeries robotic assisted hysterect gamal w/bilater al salpingo- oophorect gamal (SURG) 2024 025 [email or web address] [facility], [address], [place], [address], 09/29/2024 15:48:00 Imaging US, pelvis 2024 025 [address], [address], [place], [address], 08/21/2024 09:04:55 US, transvagi nal 2024 [facility]25 [email or web address], [address], [place], [address], 08/21/2024 09:04:55 US, pelvis, complete 2024 025 [address], [address], [place], [address], 08/28/2024 11:11:54 Medication Orders progester one micronize d 200 mg capsule 2024 025 [facility]acy #[id number], [address], [place], [address], 08/31/2024 11:56:51 Zepbound 5 mg/0.5 mL subcutane ous pen injector 2023 024 [id number], [address], [place], [address], 11/25/2023 08:58:48 estradiol 0.05 mg/24 hr weekly transderm al patch 2023 024 [id number], [address], [place], [address], 11/03/2023 16:02:47 progester one micronize d 100 mg capsule 2023 024 [id number], [address], [place], [address], 08/31/2024 11:56:34 Patient TargetsNo targets recorded. Patient InstructionsNo instructions recorded. 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 Referral for Painless rectal bleeding Referring Physician: Gabriela Irwin, ADMISSIONS REPRESENTATIVE, Encounter Date: 07/29/2024 Results Created Date Observation Date Name Description Value Unit Range Abnormal Flag Note LastModifiedBy Organization Detail LastModifiedTime 07/30/1907/29/2024 WOMEN 'S HEALT H SWAB PLUS, TRISTEN bacterial vaginosis (bv), tma Negati ve negati ve Not Available [facility] (Lab) [address] [place], [address], 07/31/2024 23:02:29 07/30/19 25 07/29/2024 [facility] corine species, tma Negati ve negati ve Not Available [facility] (Lab) [address] [place], [address], 07/31/2024 23:02:29 07/30/19 25 07/29/2024 WOMEN 'S HEALT H SWAB PLUS, TRISTEN corine glabrata, tma Negati ve negati ve Not Available [facility] (Lab) [address], [place], [address], 07/31/2024 23:02:29 07/30/19 25 07/29/2024 WOMEN 'S HEALT H SWAB PLUS, TRISTEN trichomonas vaginalis, tma Negati ve negati ve Not Available [facility] (Lab) [address], [place], [address], 07/31/2024 23:02:29 07/30/19 25 07/29/2024 WOMEN 'S HEALT H SWAB PLUS, TRISTEN chlamydia trachomatis, PCR Negati ve negati ve Not Available [facility] (Lab) [address], [place], [address], 07/31/2024 23:02:29 07/30/19 25 07/29/2024 WOMEN 'S HEALT H SWAB PLUS, TRISTEN neisseria gonorrhoeae, PCR Negati ve negati ve Bacte rial vagin osis detec ts the follo wing bacte manoj assoc iated with bacte rial vagin osis (BV): Lacto bacil carissa (L. gasse ri, L. crisp atus and L. jense zaina), Gardn erell a vagin regla, and Atopo bium vagin ae. A singl e quali tativ e resul t is repor maribell base on instr ument softw are to deter mine BV posit bakari or negat bakari statu s. The [facility] da speci es group tests for C. albic ans, C. tropi calis , C. parap tammy is, C. dubli niens is. Testi ng is perfo rmed using the Trans cript ion Media maribell Ampli ficat ion metho d. Tests for Lolita da glabr kevan, Trich omona s vagin regla, Chlam ydia trach omati s, and Neiss eria gonor rhoea e are also inclu ded in this panel . Not Available [facility] (Lab) [address], [place], [address], 07/31/2024 23:02:29 07/30/19 25 07/29/2024 CULTU RE: URINE result report SEE RESULT S BELOW abnormal Test: Cultu re: Urine Speci men Sourc e: Urine - Clean Catch Speci men Type: Urine Speci men Date: 2024 0910 Resul t Date: 20247 Resul t Statu s: Final resul t Abnor mal: Yes Resul maxjose Lab: [facility] [address] [facility] [address] Tel: CULTU RE ----- ----- ----- --- >100, 000 CFU/m l Esche marshall a coli (Abno rmal) SUSCE PTIBI LITY ----- ----- ----- --- Esche marshall a coli METHO D MANOJ ----- ----- ----- ----- ----- ---- ----- ----- ----- ----- ----- AMPIC ILLIN <=8 ug/mL Susce ptibl e AMPIC ILLIN /SULB ACTAM <=4 ug/mL Susce ptibl e AZTRE ONAM <=4 ug/mL Susce ptibl e CEFAZ REYNA <=2 ug/mL Susce ptibl e CEFEP PETER <=2 ug/mL Susce ptibl e CEFTA ZIDIM E <=1 ug/mL Susce ptibl e CEFTR IAXON E <=1 ug/mL Susce ptibl e CIPRO FLOXA ALYSSA <=0.2 5 ug/mL Susce ptibl e GENTA MICIN <=2 ug/mL Susce ptibl e LEVOF LOXAC IN <=0.5 ug/mL Susce ptibl e MEROP ENEM <=1 ug/mL Susce ptibl e NITRO FURAN TOIN <=32 ug/mL Susce ptibl e PIPER ACILL IN/TA ZOBAC CINTRON <=8 ug/mL Susce ptibl e TOBRA MYCIN <=2 ug/mL Susce ptibl e TRIME THOPR IM/GLASER LFAME THOXA ZOLE <=0.5 ug/mL Susce ptibl e Not Available [facility] (Lab) [address], [place], [address], 07/31/2024 23:02:30 07/30/19 25 07/29/2024 pregn justin test, urine HCG negati ve Not Available [facility] [address], [place], [address], 07/29/2024 10:16:48 07/30/19 25 07/29/2024 urina lysis , dipst ick Leukocytes - Not Available [facility] leanna [address], [place], [address], 07/29/2024 09:58:41 07/30/19 25 07/29/2024 urina lysis , dipst ick Nitrite - Not Available [facility] [address], [place], [address], 07/29/2024 09:58:41 07/30/19 25 07/29/2024 urina lysis , dipst ick Urobilinogen - Not Available [facility] [address], [place], [address], 07/29/2024 09:58:41 07/30/19 25 07/29/2024 urina lysis , dipst ick Protein trace Not Available [facility] [address], [place], [address], 07/29/2024 09:58:41 07/30/19 25 07/29/2024 urina lysis , dipst ick pH 5 Not Available [facility] [address], [place], [address], 07/29/2024 09:58:41 07/30/19 25 07/29/2024 urina lysis , dipst ick Blood ++ Not Available [facility] [address], [place], [address], 07/29/2024 09:58:41 07/30/1907/29/2024 urina lysis , dipst ick Specific [place] 1.020 Not Available [facility] alexander [address], [place], [address], 07/29/2024 09:58:41 07/30/19 25 07/29/2024 urina lysis , dipst ick Ketone - Not Available [facility] [address], [place], [address], 07/29/2024 09:58:41 07/30/19 25 07/29/2024 urina lysis , dipst ick Bilirubin - Not Available [facility] maria del rosario [address], [place], [address], 07/29/2024 09:58:41 07/30/19 25 07/29/2024 urina lysis , dipst ick Glucose - Not Available [facility] [address], [place], [address], 07/29/2024 09:58:41 07/30/1907/29/2024 urina lysis , dipst ick Appearance cloudy Not Available [facility] Georgiasudha ram [address], [place], [address], 07/29/2024 09:58:41 07/30/19 25 07/29/2024 urina lysis , dipst ick Color light yellow Not Available [facility] [address], [place], [address], 07/29/2024 09:58:41 09/01/19 25 08/31/2024 SURGI LUIS MANUEL PATHO LOGY surgical pathology SEE RESULT S BELOW CASE REPOR T: Surgi luis manuel Patho logy Repor t Case: [id number] Autho todd Koromai lis: Gabriela Irwin NP Colle cted: 08/31 1002 Order ing Locat ion: [place] Patho loglupe Recei miroslava: 09/01 0237 Patho logis t: Benjamin Fontana MD Speci men: Endom etriu m, EMB ----- ----- ----- ----- ----- ----- ----- ----- ----- ----- ----- ----- ----- ----- ----- ----- ----- ---- FINAL DIAGN OSIS: Endom etriu m, biops y: - Fragm ents of endom etria l polyp and inact bakari endom etriu m. - Negat bakari for hyper plasi a and malig mariangel . Elect agustina sierra by Benjamin Fontana MD on 025 at 1404 CDT ----- ----- ----- ----- ----- ----- ----- ----- ----- ----- ----- ----- ----- ----- ----- ----- ----- ---- CLINI LUIS MANUEL INFOR MATIO N: Abnor mal uteri ne bleed ing MICRO SCOPI C DESCR IPTIO N: A micro scopi c exami natio n was perfo rmed. GROSS DESCR IPTIO N: A. Endom etriu m. The speci men is label ed with the patie nt's name, yessenia verduzco and KATHARINA . Recei miroslava in forma mukesh is a 2.5 x 0.9 x 0.[address] of red-t an tissu e and mucus . The entir e speci men is submi tted in one casse tte. Gross ed by Franky Beasley on Not Available [facility] (Lab) [address], [place], [address], 09/01/2024 15:07:25 09/01/19 25 08/31/2024 pregn justin test, urine HCG negati ve Not Available [facility] [address], [place], [address], 08/31/2024 11:54:00 08/20/19 25 08/19/2024 US, pelvi s No observ ation record ed. [facility] [address], [place], [address], 08/19/2024 14:33:36 08/20/19 25 08/19/2024 US, trans vagin al No observ ation record ed. [facility] [address], [place], [address], 08/19/2024 14:33:48 08/20/19 25 08/19/2024 US, pelvi s No observ ation record ed. [email or web address] [address], [place], [address], 08/22/2024 16:56:44 Result Notes None recorded. Procedures Surgical History Date Name Laterality Status Provider Name and Address Organization Details Recorded Time 09/01/19 25 Endometrial Biopsy completed WENDY Patel [address], [place], [address], [place] [facility] 08/31/2024 11:53:39 08/25/19 24 Date of Last Pap Smear completed Disha Barnett [facility] 09/20/2024 12:47:01 02/08/20 21 Date of Last Colonoscopy completed Jayne Worthington [facility] 08/25/2023 09:27:12 02/08/20 21 Colposcopy completed Bonita Julian [facility] 02/18/2021 15:53:22 02/08/20 21 Colonoscopy completed Jayne Worthington [facility] 08/25/2023 09:28:39 02/08/20 21 Colposcopy completed Lanie Rascon [facility] 11/03/2023 15:27:00 05/30/19 21 Skin Tag Removal completed Lyn Reina, [facility]- [address], [place], [address], [facility] 05/30/2020 10:56:56 05/04/19 13 Tubal Ligation completed [facility] 08/25/2023 09:28:46 02/20/19 98 section completed [facility] 08/25/2023 09:29:25 05/04/18 94 extraction of wisdom tooth completed [facility] 08/25/2023 09:29:04 Imaging Results None recorded. Procedure Notes None recorded. Medical Equipment None Reported. Allergies No known drug allergies Medications Name Sig Start Date Stop Date Status Note LastModified by Organization Details LastModified Time cyclobenzap rine 10 mg tablet TAKE 1 TABLET BY MOUTH DAILY 3 TIMES DAILY NEEDED FOR MUSCLE SPASM 10/28 completed Not Available Not Available Not Available prednisone 20 mg tablet TAKE 2 TABLETS BY MOUTH EVERY DAY FOR 5 DAYS 10/28 completed Not Available Not Available Not Available estradiol 0.05 mg/24 hr weekly transdermal patch APPLY 1 PATCH ONTO THE SKIN ONE TIME PER WEEK 2024 active Not Available Not Available Not Avai lable ciprofloxac in 500 mg tablet TAKE 1 TABLET BY MOUTH EVERY 12 HOURS 02/18 completed Not Available Not Available Not Available estradiol 1 mg tablet TAKE 1 TABLET BY MOUTH EVERY DAY WITH A MEAL 11/24 completed Not Available Not Available Not Available progesteron e micronized 200 mg capsule Take 1 capsule every day by oral route for 30 days. 2024 active Not Available Not Available Not Avai lable estradiol 0.5 mg tablet TAKE 1 TABLET BY MOUTH EVERY DAY 10/28 completed Not Available Not Available Not Available methylpredn isolone 4 mg tablets in a dose pack TAKE 6 TABLETS ON DAY 1 DIRECTED ON PACKAGE AND DECREASE BY 1 TAB EACH DAY FOR A TOTAL OF 6 DAYS 10/28 completed Not Available Not Available Not Available fluoxetine 20 mg capsule TAKE 1 CAPSULE BY MOUTH EVERY DAY 10/28 completed Not Available Not Available Not Available progesteron e micronized 100 mg capsule TAKE 1 CAPSULE BY MOUTH EVERY DAY DIRECTED FOR 90 DAYS 08/31 completed Not Available Not Available Not Available amoxicillin 875 mg-potassiu m clavulanate 125 mg tablet TK 1 T PO BID WITH THE MORNING AND JESSICA MEAL FOR 7 DAYS FOR SINUS IRRITATIO N OR COG 05/24 completed Not Available Not Available Not Available Premarin 0.625 mg/gram vaginal cream INSERT 0.5GM PER VAGINA NIGHTLY X 14 DAYS, THEN, TWICE A WEEK FOR MAINTENAN CE. 11/02 completed Not Available Not Available Not Available escitalopra m 5 mg tablet TAKE 1 TABLET BY MOUTH EVERY DAY 10/28 completed Not Available Not Available Not Available nitrofurant oin monohydrate /macrocryst als 100 mg capsule TAKE 1 CAPSULE BY MOUTH EVERY 12 HOURS FOR 7 DAYS 08/31 completed Not Available Not Available Not Available BD Ultra-Fine Fabi Pen Needle 32 gauge x 32 08/24 completed Not Available Not Available Not Available Saxenda 3 mg/0.5 mL (18 mg/3 mL) subcutaneou s pen injector Inject 0.6mg SQ daily x 7 days, then 1.2mg SQ daily x 7 days, then 1.8mg SQ daily x 7 days, then 2.4mg SQ daily x 7 days, then 3mg daily ongoing (maintanc e dose) 2022 active Not Available Not Available Not Avai lable Zepbound 5 mg/0.5 mL subcutaneou s pen injector 11/24 completed Not Available Not Available Not Available Zepbound 2.5 mg/0.5 mL subcutaneou s pen injector 2024 active Not Available Not Available Not Avai lable Zepbound 7.5 mg/0.5 mL subcutaneou s pen injector INJECT THE CONTENTS OF 1 PEN UNDER THE SKIN ONCE WEEKLY (NEEDS APPOINTME NT ) 2024 active Not Available Not Available Not Avai lable Vitals Date Recorded Body height Body mass index (BMI) Body weight Systolic blood pressure Diastolic blood pressure Provider Name and Address Organization Details Last Updated DateTime 07/29/2024 157.48 cm 33.8 kg/m2 13367.15 g 121 mm[Hg] 75 mm[Hg] Mai Lewiston [facility] 5 09:45:24 Date Recorded Body height Body mass index (BMI) Body weight Systolic blood pressure Diastolic blood pressure Provider Name and Address Organization Details Last Updated DateTime 08/31/2024 157.48 cm 34.1 kg/m2 94515.62 g 114 mm[Hg] 77 mm[Hg] Kathairna Doe [facility] 5 10:37:42 Date Recorded Body height Body mass index (BMI) Body weight Systolic blood pressure Diastolic blood pressure Provider Name and Address Organization Details Last Updated DateTime 09/20/2024 157.48 cm 34.8 kg/m2 22247.55 g 145 mm[Hg] 86 mm[Hg] Disha Anibal [facility] 5 12:46:39 Date Recorded Body height Body mass index (BMI) Body weight Systolic blood pressure Diastolic blood pressure Provider Name and Address Organization Details Last Updated DateTime 11/03/2023 157.48 cm 36.8 kg/m2 41469.07 g 122 mm[Hg] 74 mm[Hg] Lanie Rascon [facility] 4 15:28:58 Social History Question Answer Notes LastModified by Organizat ion Details LastModified Time Tobacco Smoking Status Former Smoker Katharina Rivasney [facility] 08/31/2024 10:38:53 Do You Have An Advance Directive? No Information n ot available 05/28/2021 How Many Years Have You Consumed Alcohol? 30 Information not available 05/24/2020 Are You Blind Or Do You Have Difficulty Seeing? No Information n ot available 05/28/2021 What Is Your Level Of Caffeine Consumption? Moderate Information not available 05/24/2020 In The 14 Days Before Symptom Onset, Have You Had Close Contact With A Laboratory-confirm ed COVID-19 While That Case Was Ill? No Information n ot available 05/28/2021 In The 14 Days Before Symptom Onset, Have You Had Close Contact With A Person Who Is Under Investigation For COVID-19 While That Person Was Ill? No Information not available 05/28/2021 Have You Been To An Area Known To Be High Risk For COVID-19? No Information not available 05/28/2021 Are You Deaf Or Do You Have Serious Difficulty Hearing? No Information not available 05/28/2021 What Type Of Diet Are You Following? REGULAR Information n ot available 05/28/2021 How Many Days Of Moderate To Strenuous Exercise, Like A Brisk Walk, Did You Do In The Last 7 Days? 4 Information not available 10/28/2022 On Those Days That You Engage In Moderate To Strenuous Exercise, How Many Minutes, On Average, Do You Exercise? 30 [email or web address] Information not available 10/28/2022 Are There Any Guns Present In Your Home? No Information not available 05/28/2021 Have You Ever Been Counseled For Unhealthy Alcohol Use? No [email or web address] Information not available 10/28/2022 Do You Use Protection During Sex? No Information not available 05/28/2021 Do You Use Your Seat Belt Or Car Seat Routinely? Yes Information not available 05/28/2021 Do You Have Smoke And Carbon Monoxide Detectors In Your Home? Yes Information not available 05/28/2021 How Much Tobacco Do You Smoke? No Information not available 05/28/2021 Do You Use Sunscreen Routinely? Yes Information not available 05/28/2021 Has Tobacco Cessation Counseling Been Provided? No [email or web address] Information not available 10/28/2022 How Many Years Have You Smoked Tobacco? 20 Information not available 05/24/2020 Do You Have Difficulty Walking Or Climbing Stairs? No [email or web address] Information not available 08/25/2023 How Many Days In The Past Year Have You Consumed 4 Or More Drinks? 12 [email or web address] Information not available 10/28/2022 How Many Years Have You Used E-cigarettes Or Vape? 20 [email or web address] Information not available 10/28/2022 Sex: Unknown Functional Status Question Answer Note LastModified by Organizat ion Details LastModified Time Do you use any illicit or recreational drugs? No Information not available 05/24/2020 Do you or have you ever used any other forms of tobacco or nicotine? Yes [email or web address] Information not available 10/28/2022 What is your level of alcohol consumption? Occasional Information not available 05/24/2020 Do you or have you ever used smokeless tobacco? Never used smokeless tobacco [email or web address] Information not available 10/28/2022 Are you able to walk? [email or web address] Information not available 05/28/2021 Are you able to care for yourself? 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 No [email or web address] Information not available 08/25/2023 Do you or have you ever used e-cigarettes or vape? Current user of electronic cigarettes [email or web address] Information not available 10/28/2022 What is your exercise level? Moderate Information not available 05/24/2020 Mental Status Question Answer Note LastModified by Organization D etails LastModified Time Do you feel stressed (tense, restless, nervous, or anxious, or unable to sleep at night)? [id number] Information not available 05/28/2021 Family History Nothing Reported. Medical History Condition Response Allergies (Food, seasonal, environmental ) N Other N Breast Cancer N Drug/Latex Allergies/Reactions N Blood Transfusion N Dermatologic Disorders N Lung Disease N Defects or Inherited Disease N Breast Problem N Gestational Diabetes N Hematologic disorders N Anesthesia Complications N History of STI N Deep Vein Thrombosis N Polycystic ovary syndrome N Anxiety Disorder N Autoimmune disease N Arthritis N Infertility N Polyps N Acid Reflux (GERD) N History of abnormal pap N Cancer N Stroke N Varicosities N Neurologic/Epilepsy N Endometriosis N High Cholesterol N Headaches N Fibromyalgia N Kidney Disease N Heart Problems N Kidney or Bladder Problems N Thyroid Problems N GI Problems N Eating Disorder N Anemia N Art (IVF or FET) N Psychiatric Illness N Ovarian Cancer N Diabetes N Pulmonary (TB, Asthma) N Hepatitis/Liver Disease N Eczema N Urinary Tract Infection N Abuse/Domestic Violence N Asthma N Trauma/Violence N Depression/ depression N Heart Disease N Pre-Eclampsia N Hypertension N Osteoporosis N Thrombophilias N Gynecological History Statement/Question Response Date of Last Mammogram Flow Heavy Date of LMP 08/27/2024 Was last menstrual period normal N STIs/STDs N Date of Last Colonoscopy 02/07/2021 Desired Control Method Sterilizati on Abnormal Pap N On BCP's at Conception? N HPV Vaccine N Colposcopy 02/07/2021 Duration of Flow (days) 29 Current Control Method Menopause 16 Age at First Child 32 Are cycles usually normal N Frequency of Cycle (Q days) Sexually Active? Y Menses Monthly N Date of DEXA bone scan Date of Last Pap Smear 08/25/2023 Sexual Problems? Y LMP Definite Y Obstetrics History GPAL:G 1 P 1 0 0 1 Type Value Full Term 1 Living 1 Total 1 Past Encounters Encounter ID Performer Location Encounter Start Date Encounter Closed Date Diagnosis/Indication Diagnosis SNOMED-CT Code Diagnosis ICD10 Code Diagnosis Note [id number] Lyn Reina , [facility] [address] [address] 05/24/2020 14:06:59 05/24/2020 14:49:17 Gynecologic examination [id number] Z01.419 Take Calcium with Vitamin D 12-1500mg daily. Do monthly self breast exams. It is advised to get annual flu shot in the fall and she could obtain at [facility] or [facility] care clinic. If you haven't received the Tdap vaccine in the last 10 years you should obtain one as well. Have mammogram yearly, bone density every 2-3 years and colonoscop y every 5-10 years depending on findings and history. Engage in daily exercise of low impact aerobic exercise 45-60 minutes 4-5 times weekly. Avoid tobacco and illicit drugs as well as using moderation with alcohol intake less than 1-2 8 oz beverages daily. This lifestyle behavior pattern will lead to less health conditions and longer life span. If BMI greater than 25 weight watchers or dietary consult advised. Questions have been answered. Patient appears to understand instructio ns, but if you have any further questions call or respond to this email Wtill with monthly menses. Flow is moderate lasting 4-5d. Minimal cramping. Getting ready to possibly be in a new [facility] ip Pap/hpv updated mammo ordered -has never had one colonoscop y-never had one. Additional precaution missy measures were taken to minimize potential exposure to the Covid-19 virus during this patient s visit, including available hand centrifugal operator upon arrive, temperatur e check and being asked a series of screening questions. All staff wore face coverings during this encounter, as well as provided additional cleaning and sanitizing of all surfaces, including countertop s, pens, chairs, door handles, light switches, etc, prior to and following the patient s visit. Labial cyst [id number] N9 0.7 Will return for removal of these epidermoid like stones of labia/vulv ar skin Screening colonoscopy 44 4371374 Z12.11 [id number] Lyn Reina [facility] [address],[facility] [place] [address] 05/30/2020 10:03:55 05/30/2020 12:48:24 Lesion of vulva 418412242 N90.89 Removal of calcified vulvar lesion of right labia majora. Post-op instructio ns given & f/u prn. Additional precaution missy measures were taken to minimize potential exposure to the Covid-19 virus during this patient s visit, including available hand centrifugal operator upon arrive, temperatur e check and being asked a series of screening questions. All staff wore face coverings during this encounter, as well as provided additional cleaning and sanitizing of all surfaces, including countertop s, pens, chairs, door handles, light switches, etc, prior to and following the patient s visit. [id number] Lyn Reina [facility] [address],[facility] [place] [address] 11/28/2020 12:21:11 11/28/2020 14:26:58 Menopausal symptom 45470256 N95.1 Hx of tubal ligation.H aving hot flashes 2-3x a weekSome night sweats about the same frequency6 wks late on her cycle (will monitor for now). We agreed on updated lab work & then RTO for a more in depth discussion on her options. Time spent in visit is a total of 28 mins with at least 50% of visit consisting of counseling and review of plan of care. Additional precaution missy measures were taken to minimize potential exposure to the Covid-19 virus during this patient s visit, including available hand centrifugal operator upon arrive, temperatur e check and being asked a series of screening questions. All staff wore face coverings during this encounter, as well as provided additional cleaning and sanitizing of all surfaces, including countertop s, pens, chairs, door handles, light switches, etc, prior to and following the patient s visit. Vaginal dryness 00286096 N89.8 Counseled on medication R/B's, Most common side effects, & use. All questions were answered to patient satisfacti on. Will trial premarin x 3mos & VCG's changes then f/u 3mos. Adult heal th examination 448099047 Z00.00 Refer to PCP as does not have one.Comple te basic panel and other labs. [id number] Jasen Marshall MD [facility] [address],[place] [address] 12/12/2020 13:50:54 12/13/2020 10:14:27 Urinary tract infectious disease 74973333 N39.0 Menopausal symptom 53914 002 N95.1 This patient is a 55 y/o female who presents for urinary sx's. Patient c/o pelvic pressure. She denies dysuria, urgency, and frequence. Reported hematuria. Reports malaise. patient also reports menopausal symptoms. She has wave of heat intoleranc e that comes over her. She begins to perspiring appear. She has soaking her hair and her neck. We discussed hormone therapy. We discussed risk in detail. We agreed to treat for urinary tract infection and menopausal symptoms. We spent more than 15 minutes face-to-fa ce. [id number] [facility] [address],[place] [address] 03/14/2021 09:38:01 03/14/2021 11:08:21 Hormone replacement therapy 118907000 Z79.890 Today, we agreed to trial different dosages of these medication s.She will keep a log of improvemen ts/neg effectsShe will start premarin cream & we will get update on this at next f/u.Still no cycle almost 6mos. Time spent in visit is a total of 15 mins with at least 50% of visit consisting of counseling and review of plan of care.Addit ional precaution missy measures were taken to minimize potential exposure to the Covid-19 virus during this patient s visit, including available hand centrifugal operator upon arrive, chilo e check and being asked a series of screening questions. All staff wore face coverings during this encounter, as well as provided additional cleaning and sanitizing of all surfaces, including countertop s, pens, chairs, door handles, light switches, etc, prior to and following the patient s visit. [id number] Lyn Reina , [facility] [address],[place] [address] 05/28/2021 14:11:06 05/29/2021 09:15:04 Menopausal symptom 87348530 N95.1 Today we discussed current regimen.Madonna mix realized that taking 200mg of progestero ne at night helped more with anxiety in the morning.MADONNA mix feels her hot flashes are adequately controlled with Estradiol 0.5mg.She is still feeling her mood is very labile and often will get tearful.Madonna mix is not depressed or overly anxious.Do es fine at work. but home life feels her mood is more all over the place. I'm happy, I'm sad, I'm tearful... ..I feel crazy per pt. RTO x 2-4wks or sooner if needs too. We discussed increasing her progestero ne But also adding a low dose SSRI for more mood stabilizin g.Counsele d on r/b's, most common side effects of this therapy with instructio ns to stop medication with any significan t abnormal change in mood especially with thoughts of suicide/se lf-harm/shabazz rm to others. Understand ing verbalized . Time spent in visit is a total of 15 mins with at least 50% of visit consisting of counseling and review of plan of care.Addit ional precaution missy measures were taken to minimize potential exposure to the Covid-19 virus during this patient s visit, including available hand centrifugal operator upon arrive, chilo e check and being asked a series of screening questions. All staff wore face coverings during this encounter, as well as provided additional cleaning and sanitizing of all surfaces, including countertop s, pens, chairs, door handles, light switches, etc, prior to and following the patient s visit. [id number] WENDY Batista[facility] [address],[place] [address] 10/28/2022 17:58:23 10/29/2022 10:08:36 Menopausal symptom 24828009 N95.1 Restart estradiol & prometrium LMP 2021 We discussed Menopausal Hormone therapy (MHT) for women with intact uterus with the goals of reliving vaso-motor sx's using estrogen/p rogestin therapy (EPT) using lowest doses for shortest duration in women 40-59yo. Contraindi cations include: Hx of DVT or thrombolic events, High cholestero l, Hx of breast cancer, known CHD, active liver disease, unexplaine d vag bleeding, high risk endometria l cancer, TIA. Side effects can include but are not limited to: Irregular vag bleeding,, breast tenderness , nausea, weight changes, libido changes, nausea. Adverse Rxn: Elevated BP migraine w/ visual changes, breast cancer dx, ND/stroke, DVT/PE, Endometria l cancer. Please contact office with any new or worsening side effects or adverse reactions. Or if a medical emergency please go to nearest ED/[facility] for further evaluation . RTO x 4-6wks med check Time spent in visit is a total of 30 mins with at least 50% of visit consisting of counseling and review of plan of care. Obesity 609612322 E66.9 Refer to weight loss clinic ([facility]) . BMI 36.1Whole 30-lost only 3#'sVery frustrated .20lbs gain in 6mosUpdate d routine labs Adult th examination 536043322 Z00.00 Refer to PCP as does not have one.Comple te basic panel and other labs. Vitamin D deficiency 347 71294 E55.9 Pain of mu ltiple joints 68924894 M25.50 [id number] WENDY Patel [facility] [address],[place] [address] 12/19/2022 11:16:55 12/19/2022 13:41:04 Obesity 805736015 E66.9 detailed hx obtained and reviewed todayrevie wed healthy eating, portion sizes, protein intake, meal prepping, etcrecomme nd chief media officer consult - scheduledd iscussed exercise. Encouraged increase intentiona l exercise. Incorporat e strength and cardiorevi ewed obesity medication optionsR/B /A discusseds he would like to start saxenda, rx sentprecau tions reviewed with patientf/u in 4-6 weeks Time spent in visit is a total of 30 mins with at least 50% of visit consisting of counseling and review of plan of care. [id number] Lyn Reina , [facility] [address],[place] [address] 08/25/2023 09:10:34 08/25/2023 11:17:55 Gynecologic examination 01962373 Z01.419 Take Calcium with Vitamin D 12-1500mg daily. Do monthly self breast exams. It is advised to get annual flu shot in the fall and she could obtain at [facility] or [facility] care clinic. If you haven't received the Tdap vaccine in the last 10 years you should obtain one as well. Have mammogram yearly, bone density every 2-3 years and colonoscop y every 5-10 years depending on findings and history. Engage in daily exercise of low impact aerobic exercise 45-60 minutes 4-5 times weekly. Avoid tobacco and illicit drugs as well as using moderation with alcohol intake less than 1-2 8 oz beverages daily. This lifestyle behavior pattern will lead to less health conditions and longer life span. If BMI greater than 25 weight watchers or dietary consult advised. Questions have been answered. Patient appears to understand instructio ns, but if you have any further questions call or respond to this email Pap/hpv sent STD Screen declined Genetic Screen discussed Colon Screen UTD Dexa Screen na Routine Labs ordered before starting anyweight loss medication Adult heal th examination 271341673 Z00.00 Refer to PCP as does not have one.Comple te basic panel and other labs. Screening mammography 24 719427 Z12.31 Menopausal symptom 46905 002 N95.1 Counseled on the following: Females >10yrs past menopause (& age 60yo+) are generally not good candidates for starting (1st use) systemic HT. Decisions to continue systemic HT > a decade past menopause (or past age 60yo) requires balancing R/B's; & individual ized needs. Non-hormon al options may be more appropriat e for females >10yrs past menopause. Vaginal dryness 27749274 N89.8 Counseled on medication R/B's, Most common side effects, & use. All questions were answered to patient satisfacti on. Will trial premarin x 3mos & VCG's changes then f/u 3mos. Body mass index 30+ - obesity 711046371 Z68.37 Was on Saxenda last yearWorked well but then weight loss program d/c'd and was not able to continue program.We discussed seeing what is covered for weight loss under her insurance plan.If medication is approved, will contact us, make appt to discuss goals/coun trae/admini stration and then discuss f/u schedule.N eg personal/f amily history for medullary thyroid cancerCoun seled on medication R/B's, Most common side effects, & use. All questions were answered to patient satisfacti on. Vitamin D deficiency 347 83772 E55.9 Perimenopa usal disorder 762357106 N95.9 Update labs Dyspareunia 31579588 N94 .10 RF sent x 1yrDoing wellNo issues and no dosage changes required this year.Exam wnl [id number] WENDY Patel [facility] [address],[place] [address] 11/03/2023 15:22:33 11/04/2023 11:08:42 Obesity 673553499 E66.9 Desires to continue on zepboundIn crease to 5mg weeklyrx sent, r/b/a reviewedqu estions answeredco ntinue regular exercise, healthy lifestylem ed check in 3 months Menopausal symptom 71475 002 N95.1 recommende d switching to transderma l estradiol d/t elevated triglyceri desr/b/a reviewed, [facility] handout givenrx sent for estradiol weekly transderma l patches, continue daily oral progestero ne Time spent in visit is a total of 30 mins with at least 50% of visit consisting of counseling and review of plan of care. [id number] Gabriela Irwin [facility]OO [facility] [address],[place] [address] 07/29/2024 09:33:59 07/29/2024 11:52:15 Urinary symptoms 446350875 R39.9 UA done/cx sent Abnormal u terine bleeding 7525549622 9100 N93.9 The patient and I discussed the various causes of abnormal uterine bleeding, including polyps, fibroids, hyperplasi a, atypia, anovulatio n, etc. We reviewed the typical evaluation with labs, pelvic US and possible endometria l biopsy.UPT (-)Pelvic u/s orderedwil l reach out to pt with u/s results and discuss next steps/navneet mmendation sprecautio ns discussed with pt Painless r ectal bleeding 856276204 K62.5 referral to GI Pain in pelvis 30259807 R10.2 Vaginal odor 801577790 N 89.8 vaginitis/ STI panel sent Time spent in visit is a total of 35 mins with at least 50% of visit consisting of counseling and review of plan of care. Venereal d isease screening 097151578 Z11.3 [id number] Jasen Marshall MD [facility] [address],[place] [address] 08/19/2024 10:24:07 08/19/2024 11:15:23 Abnormal uterine bleeding 7188646816 9100 N93.9 [id number] Gabriela Irwin MOO [facility] [address],[place] [address] 08/31/2024 10:26:30 08/31/2024 12:00:51 Abnormal uterine bleeding 3716391994 9100 N93.9 Pelvic u/s reviewed (enlarged fibroid uterus)EMB discussed, r/b/a reviewedUP T (-)EMB done (see procedure note)discu ssed options pending resultsopt s to pursue MD consult (scheduled for MD consult with Dr. Marshall)will increase prometrium to 200 nightlyque stions answered, precaution s discussed Time spent in visit is a total of 30 mins with at least 50% of visit consisting of counseling and review of plan of care. Leiomyoma 5247184146 90754 D21.9 Perimenopausal state 260 1026786 48989 N95.1 [id number] Jasen Marshall MD [facility] [address] [address] 09/20/2024 12:23:02 09/20/2024 13:50:36 Intramural leiomyoma of uterus 23957388 D25.1 D25.0 D25.2 this patient is a 58-year-ol d female with vaginal bleeding and pelvic pain. She also has a enlarged myomatous uterus. Patient wants definitive surgical treatment. She is postmenopa usal. She can not expect her symptoms to get any better. We agreed to robotic total hysterecto my and bilateral salpingo-o ophorectom y. She understand s the risks, benefits, and alternativ es. She has completed the informed consent process and is ready to proceed. I spent over 30 minutes on her care in total. Pain in pelvis 85482447 R10.2 Health Concerns Section Related Observation LastModified by Organization Detai ls LastModified Time None Recorded Concern Status LastModified by Organization Details LastModified Time None Recorded Advance Directives Directive N: Payers Encounter Date Sequence Insurance Name Policy Number Policy Cain Covered Member ID Cain Member ID Guarantor Name 11/03/2023 1 [employer] [id number] Kaci Cheatham [id number] Kaci Cheatham 07/29/2024 1 [employer] [id number] Kaci Cheatham [id number] Kaci Guptaight 08/19/2024 1 [employer] [id number] Kaci Cheatham [id number] 12 Kaci Cheatham 08/31/2024 1 [employer] [id number] Kaci Cheatham [id number] Kaci Guptaight 09/20/2024 1 [employer] [id number] Kaci Cheatham [id number] Kaci Cheatham Notes Date Note Type Note Provider Name and Address Organization Details Recorded Time 11/03/19 24 text/htm l 57yopresents for med check[facility] an improvement in food noise/cravings at first, but now feels like it is not helping with this as muchno negative SE, denies any n/v or irregular bowel movementsexercising regularly, making healthy diet changes on oral estradiol and prometrium for hot flashes/night sweats which has been controlling these symptomsrecent labs with elevated lipid panel WENDY Patel [address], [place], [address], [facility] 11/04/2023 09:02:04 07/30/19 25 text/htm l 58yohere today for recent irregular periodsPerimenopausalhad gone 8 months without a period, then had 8 day long periods in Apr, May, and Jun. End of Jun had 3 week long episode of vaginal bleeding. Alternated between heavy flow to light flow.On estradiol transdermal patches and oral prometrium for VMSNo current vaginal bleedingSA with steady male partner, no new partnersvaginal odor at timesneg d/c, itchingHas had episodes of bilateral lower pelvic cramping(+) constipation over the past few months, on zepbound but has stopped the past 2 weeks d/t symptomsa few episodes of rectal bleeding over the past few months, colonoscopy last 3-4 yrs ago neg pain with urinationneg n/v/fneg flu-like symptomsneg dizziness, SOB, fatigue WENDY Patel [address], [place], [address], [facility] 07/29/2024 11:50:16 09/01/19 25 text/htm l 58yopresents for EMB d/t irregular bleedingsee HPI from 07/29/2024 on HRT for VMS (estradiol transdermal and nightly prometrium 100mg) WENDY Patel [address], [place], [address], [facility] 08/31/2024 11:59:23 09/21/19 25 text/htm l this patient is a 58-year-old female with vaginal bleeding and pelvic pain. She also has a enlarged myomatous uterus. Patient wants definitive surgical treatment. She is postmenopausal. She can not expect her symptoms to get any better. We agreed to robotic total hysterectomy and bilateral salpingo-oophorectomy. She understands the risks, benefits, and alternatives. She has completed the informed consent process and is ready to proceed. The patient understands the procedure. The procedure was described to the patient in great detail. the patient also understands the risks. The risks were also explained in detail. She understands that injuries May occur during surgery. She understands these injuries can result in hospitalization, more surgery, and severe illness. She understands there is risk of hemorrhage and infection. Jasen Marshall MD [address], [place], [address], [facility] 09/20/2024 13:45:37 OBGyn Episode Ob Episode Information Episode Created Date Number of Fetuses Patient Bloodtype Patient rh Status Prepregnancy Weight lbs Domestic Partner Domestic Partner Phone Father Name Senior Manager [employer] Status 05/24/19 21 1 CLOSED Fetus Data First Name Last Name Admitted to NICU Weight (g) Sex Living Outcome Pediatric Complications Fetus ID Race Codes Race Delivery Type 3345.24 1 F Full Term [id number] Primary Rusty Calculation Initial Rusty Date Initial Exam Date Initial Exam Provider Initial Ultrasound Date Last Menstrual Period Date Ultra Sound Weeks Gestation 0 Eighteen To Twenty Week Rusty Update Ultra Sound Date Fundal Height At Umbil Quickening Date Ultra Sound Latest Weeks Gestation Final Rusty Confirmed By Final Rusty Confirmed Date Final Rusty Date Ultra Sound Latest Days Gestation 0 0 Menstrual History Last Menstrual Date Menses Monthly On Bcp Conception Prior Menses Frequency Hcg Plus Date Menarche Onset Age Delivery Information Delivery Date Delivery Type Labor Anesthesia Weeks Gestation Incision Type Labor Labor Length Hrs Delivered By Post Complications Tubal Sterilization Discharge Date Comments 8 40 Discharge Information Feeding Method Contraceptive Method Maternal HG B and HCT Levels
== END 2024-10-05 08:03 | disposition home or self-care (01) ==
PROVIDERS: PCP Nurse Practitioner; Visit Provider Obstetrics & Gynecology
DX: D25.9 Leiomyoma of uterus, unspecified (principal)
CPT/HCPCS: 36415; 86850; 86900; 86901

== ENCOUNTER 2024-10-06 01:39 | Day surgery (SDC) | payer BC, SELFPAY ==
--- NOTE | 2024-10-03 07:55 | PC.NURSE ---
Report to the Outpatient Waiting Room, entrance under the green pavilion located off [facility], at time __7 AM on date __10/06/24 . Planned Procedure Time: __9AM .? Time changes happen often and if your time is changed the preop area will call you the afternoon before. - You and your visitor will be asked to self-screen and do not enter if you have any COVID symptoms. Please call surgeon if you need to reschedule. - A mask is optional within the hospital at this time. Patients may have clear liquids (water, carbonated beverages, clear teas, apple juice) until 3 hours prior to surgery ( 6AM ) with a maximum of 20 ounces. - No food from midnight until time of surgery and no smoking, or chewing tobacco (or any form of nicotine). No chewing gum, candy or mints. - Take only the following medications with a SIP of water on the morning of surgery: ____NONE DO NOT STOP ANY OF YOUR OTHER PRESCRIPTION MEDICATIONS PRIOR TO SURGERY EXCEPT THE FOLLOWING Hold all vitamins and supplements for 3 days per anesthesiologist. Medications to discontinue per physician NONE Please no make-up, nail malaysian, hairspray, perfume, deodorant, or body powder the day of surgery.? No jewelry (including any body piercings) or valuables the day of surgery, leave them at home.? Please take a shower or bath the night before, or the morning of, surgery with an antibacterial soap.? Wear comfortable, loose fitting clothing.? Children are encouraged to wear pajamas. - Jewelry must be removed prior to entering the operating room.? Rings and piercings that are not removed may be cut off. - The hospital will not accept responsibility for valuables.? - Please leave all valuables, including medications, at home the day of surgery. If you are going home after surgery, a licensed local company hazmat driver must drive you home.? - NO public transportation without another adult if you receive anesthesia. - We recommend that an adult stay with you for 24 hours following discharge. - We also recommend that you do not drive, make important decision, drink alcoholic beverages, or take any drugs that were not prescribed by your health care provider for at least 24 hours after your discharge time. For Pediatric surgeries, we recommend two adults accompany the child home. Follow any additional instructions given to you from your surgeon. Telephone instructions given to __PATIENT and asked if any additional questions and then verbalized understanding. Patient advised to call surgeon office or pre surgery nurse liaison [phone] if any additional questions.
[2024-10-03 08:09] VITALS: BMI 31.0
[2024-10-06] VITALS (11 sets, daily range): BP systolic 98–137; BP diastolic 51–81; PULSE 55–80; RESP 12–20; TEMP 36.1–37.4; O2SAT 97–100; BMI 34.0
--- NOTE | 2024-10-06 07:38 | WPDHPUPDATE1 ---
History and Physical Update Update Date/Time: 10/06/24 07:38 History and Physical has been reviewed, including an updated exam of the patient. There are NO changes in the patient's condition. Risks, benefits, and alternatives have been discussed and questions answered. Patient agrees to proceed with procedure.
[2024-10-06] MEDS: LACTATED RINGERS 1,000 ML 30 ML IV CONT ×2 (07:45→11:40)
--- NOTE | 2024-10-06 07:51 | P.PNAN_ITS ---
Anes - Initial Pre Proc Eval Procedure: Operation Date: 10/06/24 09:00 Proposed Procedures p Robotic Assisted Hysterectomy with Bilateral Salpingo Oophorectomy - Jasen Marshall MD Date/Time: 10/06/24 07:51 Surgeon: Jasen Marshall MD Pre Op Diagnosis: intramural submucous and leiyomyoma of uterus Patient Data Age: 58 Gender: F Height: 1.6 m Weight: 79.4 kg Allergies Allergy/AdvReac Type Severity Reaction Status Date / Time No Known Allergies Allergy Verified 10/03/24 07:54 Home Medications ?Medication ?Instructions ?Recorded ?Confirmed ?Type estradiol 0.05 mg/24 hr semiweekly 1 patch transdermal 2XW 08/25/24 10/03/24 History transdermal patch (Lyllana) linaclotide 145 mcg capsule 145 mcg Capsule#4 Samples 08/25/24 10/03/24 Sample (Linzess) progesterone micronized 100 mg 100 mg PO QAM 08/25/24 10/03/24 History capsule loratadine 10 mg tablet (Claritin) 10 mg PO DAILY 10/03/24 10/03/24 History Patient hx anesthesia problems: post op nausea/vomiting Family hx anesthesia problems: none Results Review: All pre-operative results and documents have been reviewed as part of the pre- operative evaluation. FOR[facility]LY [facility], [facility] Past Medical History Medical History (Updated 10/05/24 @ 13:40 by Richy Hutchinson DO) PONV (postoperative nausea and vomiting) Obesity Surgical History Surgical History History of Family History Family History Father Diabetes mellitus, Onset Age: 69 Hypertension Heart disease Mother Asthma Heart disease Thyroid disorder Grandparent Cancer Other Cancer Cerebrovascular accident Sibling Heart disease Other Family history of malignant neoplasm of breast Social History Social History Years smoked: 15 Smoking status: Former smoker Tobacco type: cigarettes Smoking end date: 05/04/15 Alcohol intake: current Drinks per week: 6 Alcohol use details: ONE DRINK EVERY OTHER WK Substance use: never Substance use type: does not use Living arrangements: with family Occupation/Education: occupation 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 Informed Consent: The patient's anesthetic plan and its attendant risks and benefits were discussed with the patient/family/POA. Questions were solicited and answers provided to the satisfaction of the patient/family/POA.
[2024-10-06] MEDS: ACETAMINOPHEN 500 MG TABLET 1000 MG PO ×3 (07:55→21:46)
[2024-10-06] MEDS: KETOROLAC 15 MG/ML VIAL (*BKC) IV PUSH (07:55)
[2024-10-06] MEDS: SCOPOLAMINE 1 MG PATCH 1 PATCH TRANSDERM (08:10)
[2024-10-06 08:54] LABS: BEDSIDEPREGUCG Negative (Negative)
[2024-10-06] MEDS: ceFAZolin 2 GM/D5W 50 ML 2 GM/50 ML BAG IVPB (09:02)
[2024-10-06] MEDS: ceFAZolin SODIUM 1 GM VIAL (09:52)
--- NOTE | 2024-10-06 10:53 | S_PTH ---
PATIENT: Kaci Cheatham LOC: [facility] U#:[id number] AGE/SX: 58/F ROOM: RE10/06/[address]: Jasen Marshall MD : 1965 BED: DIS: 10/07/2024 SPEC #: [id number] RECD: 10/06/24 13:10 STATUS: JEROME REBao #: [id number] DICK: 10/06/24 10:[address]: Jasen Marshall DEPT: [facility] Surgical RECD BY: Estella Greco ENTERED: 10/06/24 13:10 SP TYPE: Surgical OTHR DR: Gabriela Rice, ELEMENTARY SCHOOL TEACHER'S AIDE Tissues: A - Uterus Procedures: Hematoxylin and Eosin Stain Gross and Microscopic Level 5
--- NOTE | 2024-10-06 11:55 | W.PM.PROC2 ---
Procedure Note - Detailed Date of Procedure 10/06/24 Pre-op Diagnosis intramural submucous and leiyomyoma of uterus Post-op Diagnosis Same Procedure Performed Robot assisted Total hysterectomy with bilateral Salpingo-oophorectomy. Surgeon Jasen Marshall MD Anesthesia General Indications pelvic pain Findings normal-appearing uterus tubes and ovaries. Normal appearing vulva vagina and cervix.Large fibroid uterus -400 +g Description of Procedure This patient was taken to the operating room. She was prepped and draped in the dorsal lithotomy position after induction of general anesthesia. The uterine manipulator and Tulio cup were placed. This was done with a speculum and tenaculum. The speculum was placed. The cervix was grasped with a tenaculum. The stay sutures were placed at 3 and 9:00 a.m.. The stay sutures of 0 Vicryl were tied to the appropriately Size scope after it was slipped around the cervix.. The tip of the SIDNEY manipulator was placed in the intrauterine cavity. The cup was slid into place around the cervix and into the fornices. It was locked into place. The sutures were then wrapped around the handle and tied under tension. A 8 mm skin incision was made in the left upper quadrant the abdomen. a 5 mm Visiport trocar was inserted into abdominal cavity and pneumoperitoneum was achieved. A 8 mm supraumbilical incision was made and a 8 mm trocar was inserted into the intrauterine cavity under direct visualization of the scope. an 8 mm incision was made in the right upper quadrant of the abdomen and an 8 mm robotic trocar was placed the inter uterine cavity under direct visualization the scope. An 11 mm trocar was inserted in the right upper quadrant of the abdomen rectal is a cystoscope after an incision was made there as well. The robot was docked. Electronic Orientation of the robot was performed. Bilateral ureteral lysis was performed. This was done from the pelvic brim down to the uterine artery. This was done with careful dissection using sharp and blunt dissection. The fallopian tubes and ovaries were removed bilaterally. The infundibulopelvic ligament was isolated after identification of the ureter. It was cauterized and transected with the vessel sealer fashion. The mesosalpinx on lateral of the ovary was cauterized transected the vessel sealer. In a stepwise fashion along the lateral aspects of the uterus the round ligament and broad ligaments were cauterized transected down to the level of the uterine arteries. A bladder flap was created in the bladder was moved distally to the end of the cervix and over the Tulio cup. The bilateral uterine arteries were cauterized and transected. Colpotomy was then performed. In a circumferential fashion the vagina was transected using unipolar cautery. The incision was made down on the Tulio cup. The uterus and cervix were taken out through the vagina. A pneumo occluder was placed in the vagina. The vaginal cuff was closed with a 0 V lock suture in a running fashion. The pelvis was irrigated with copious amounts antibiotic irrigation. The ureters were again examined and found to be intact and flowing freely under the uterine arteries into the bladder. The bladder was intact. It was examined directly. The vagina was irrigated with Betadine solution after removal of the Pneumo occluder. the trocars were removed after the robot was undocked. The skin was closed with subacute or Dermabond. The patient was taken to recovery room. She was stable condition. Sponge lap and needle counts were correct x2. Estimated Blood Loss -25.0 Urine Output -125.0 Drains Yes Packing No Pathology Yes Complications No immediate complications Condition Stable Disposition Floor
[2024-10-06] MEDS: fentaNYL CITRATE INJ (*CRX) 100 MCG/2 ML VIAL 25 MCG IV PUSH ×4 (12:02→12:15)
--- NOTE | 2024-10-06 13:10 | PC.NURSE ---
This patient, Kaci Cheatham, was received from PACU via bed on 10/06/24 at 1310. Patient/family oriented to unit policies and routines.
[2024-10-06] MEDS: DEXTROSE 5%/0.45% SOD CHL 1,000 ML 125 ML IV CONT (15:08)
[2024-10-06] MEDS: KETOROLAC 30 MG/ML VIAL (*BKC) IV PUSH ×2 (15:10→21:45)
[2024-10-06] MEDS: DOCUSATE SODIUM 100 MG CAPSULE PO (17:22)
[2024-10-06] MEDS: SIMETHICONE 80 MG TAB.CHEW PO ×2 (17:22→20:15)
[2024-10-06] MEDS: oxyCODONE HCL (*CRX) 5 MG TAB IR PO (21:46)
[2024-10-07] VITALS: BP 125/69; PULSE 62; RESP 16; TEMP 36.7; O2SAT 96
[2024-10-07 04:00] VITALS: BP 123/51; PULSE 70; RESP 18; TEMP 36.7; O2SAT 97
[2024-10-07] MEDS: ACETAMINOPHEN 500 MG TABLET 1000 MG PO ×2 (04:00→09:46)
[2024-10-07] MEDS: KETOROLAC 30 MG/ML VIAL (*BKC) IV PUSH (04:00)
[2024-10-07 07:45] VITALS: BP 124/60; PULSE 57; RESP 16; TEMP 37.1; O2SAT 97
--- NOTE | 2024-10-07 08:22 | PM.GYNPNOP ---
SIDE FRAMER - A/P Postoperative Procedures: Procedures Operation Date: 10/06/24 09:00 Actual Procedure Side Surgeon p Robotic Assisted Hysterectomy with Bilateral Salpingo Oophorectomy Bilateral Jasen Marshall MD Postoperative day: 1 Postoperative status: doing well Postoperative plan: see orders Time Spent With Patient Time: Total time spent is greater than 50% in coordination of care (as documented) at patient's floor/unit and/or counseling patient: Time with patient: less than 15 minutes SIDE FRAMER- PN:Subj Post-Op Subjective Date/time seen: 10/07/24 08:22 Subjective: patient reports feeling better, patient has no complaints and pain is well controlled Exam Const: General: healthy appearing, comfortable and no acute distress Resp: Auscultation: clear to auscultation bilaterally, no rales, no rhonchi and no wheezes Cardio: Rate: regular rate Heart sounds: no click, no murmurs and no rubs GI: Inspection: non-distended Auscultation: normal bowel sounds Extrem: General: normal to inspection, no pedal edema and no calf tenderness SIDE FRAMER - PN: Obj Data Vital Signs Vital Signs: Vital Signs - 24 hr 10/06/24 08:29 10/06/24 11:40 10/06/24 11:55 Temperature 98.3 F 97.0 F L Pulse Rate 72 62 66 Respiratory Rate 16 16 12 Blood Pressure 121/53 L 113/51 L 118/63 Pulse Oximetry 99 100 97 Oxygen Delivery Room Air Simple Face Mask Nasal Cannula Oxygen Flow Rate 8 2 10/06/24 12:10 10/06/24 12:25 10/06/24 12:40 Temperature Pulse Rate 72 63 76 Respiratory Rate 12 12 16 Blood Pressure 121/73 121/73 122/62 Pulse Oximetry 100 99 99 Oxygen Delivery Nasal Cannula Nasal Cannula Nasal Cannula Oxygen Flow Rate 2 2 2 10/06/24 12:55 10/06/24 13:03 10/06/24 13:20 Temperature Pulse Rate 69 58 L 70 Respiratory Rate 12 12 16 Blood Pressure 120/72 137/81 111/64 Pulse Oximetry 100 100 98 Oxygen Delivery Nasal Cannula Nasal Cannula Oxygen Flow Rate 2 2 10/06/24 17:30 10/06/24 19:30 10/06/24 19:30 Temperature 99.3 F 98.0 F Pulse Rate 80 55 L Respiratory Rate 18 20 Blood Pressure 98/60 L 135/53 L Pulse Oximetry 100 Oxygen Delivery Room Air Oxygen Flow Rate 10/07/24 00:00 10/07/24 04:00 Temperature 98.0 F 98.1 F Pulse Rate 62 70 Respiratory Rate 16 18 Blood Pressure 125/69 123/51 L Pulse Oximetry 96 97 Oxygen Delivery Oxygen Flow Rate Intake/Output Intake/Output: Intake & Output 10/04/24 10/05/24 10/06/24 10/07/24 23:59 23:59 23:59 23:59 Intake Total 650 Output Total 860 900 Balance -210 -900 Meds/Results Medications: Active Medications Generic Name Dose Route Start Last Admin Trade Name Freq PRN Reason Stop Dose Admin Acetaminophen 1,000 mg 10/06/24 13:05 10/07/24 04:00 Acetaminophen 500 Mg Tablet PO 1,000 mg Q6HR MARÍA Administration Docusate Sodium 100 mg 10/06/24 17:00 10/06/24 17:22 Docusate Sodium 100 Mg Capsule PO 100 mg BID MARÍA Administration Ibuprofen 600 mg 10/07/24 12:00 Ibuprofen 600 Mg Tablet PO Q6HR REPLACED BY [facility] Loratadine 10 mg 10/07/24 09:00 Loratadine 10 Mg Tablet PO DAILY REPLACED BY [facility] Naloxone HCl 0.1 mg 10/06/24 13:05 Naloxone Hcl 0.4 Mg/Ml Vial IV PUSH Q2M PRN Respiratory rate less than 10 Ondansetron HCl 4 mg 10/06/24 13:05 Ondansetron Inj 4 Mg/2 Ml Vial IV PUSH Q6H PRN Nausea And Vomiting Oxycodone HCl 5 mg 10/06/24 13:05 10/06/24 21:46 Oxycodone Hcl (*Crx) 5 Mg Tab Ir PO 5 mg Q4H PRN Administration Pain Rated 4-6 Oxycodone HCl 10 mg 10/06/24 13:05 Oxycodone Hcl (*Crx) 5 Mg Tab Ir PO Q6H PRN Pain Rated 7-10 Simethicone 80 mg 10/06/24 17:00 10/06/24 20:15 Simethicone 80 Mg Tab.Chew PO 80 mg TIDWM MARÍA Administration Labs Labs: Laboratory Results - last 24 hr 10/06/24 07:15 POC Urine HCG, Qual Negative
[2024-10-07] MEDS: LORATADINE 10 MG TABLET PO (09:46)
[2024-10-07] MEDS: IBUPROFEN 600 MG TABLET PO (09:46)
[2024-10-07] MEDS: DOCUSATE SODIUM 100 MG CAPSULE PO (09:46)
[2024-10-07] MEDS: SIMETHICONE 80 MG TAB.CHEW PO (09:46)
== END 2024-10-07 10:05 | disposition home or self-care (01) ==
LOC: ANHSURGERY 06:57 → ANHOB2 13:18
PROVIDERS: PCP Nurse Practitioner; Visit Provider Obstetrics & Gynecology
PROC: (CPT 58573; principal; 2024-10-06 09:00)
DX: D25.0 Submucous leiomyoma of uterus (principal); D25.1 Intramural leiomyoma of uterus; N80.03 Adenomyosis of the uterus; Z87.891 Personal history of nicotine dependence; E66.9 Obesity, unspecified; Z68.34 Body mass index [BMI] 34.0-34.9, adult
CPT/HCPCS: 58573; S2900; 88307; 99199; A9270; J0690; J1100; J1171; J1885; J2003; J2250; J2405; J2704; J3010; J7030; J7120; Q9968